=== PATIENT | female | born 1940 | race Caucasian/White ===

== ENCOUNTER 2020-03-07 07:12 | Outpatient (CLI) | payer MEDICARE, SELFPAY ==
[2020-03-07 08:52] LABS: Alanine Aminotransferase 15 U/L (4-35); Albumin Level 3.7 g/dL (3.5-5.1); Alkaline Phosphatase 91 U/L (38-126); Anion Gap 4 mmol/L (8-16); Aspartate Amino Transferase 30 U/L (14-36); Bilirubin,Total 0.5 mg/dL (0.2-1.3); Blood Urea Nitrogen 17 mg/dL (7-17); Calcium 8.9 mg/dL (8.4-10.2); Carbon Dioxide 29 mmol/L (22-30); Chloride 104 mmol/L (98-107); Cholesterol 161 mg/dL (0-200); Estimated Glomerular Filt Rate > 60; Glucose 116 mg/dL (65-105); HDL Direct 67 mg/dL; Sodium 137 mmol/L (137-145); Triglycerides 72 mg/dL (<150)
[2020-03-07 09:05] LABS: LDL Cholesterol Direct 69 mg/dL
[2020-03-07 09:18] LABS: Free T4 Free Thyroxine 1.12 ng/mL (0.78-2.19)
== END 2020-03-07 07:13 | disposition home or self-care (01) ==
PROVIDERS: Visit Provider Internal Medicine Endocrinology, Diabetes & Metabolism
DX: M81.0 Age-related osteoporosis without current pathological fracture (principal); E03.9 Hypothyroidism, unspecified
CPT/HCPCS: 36415; 80053; 80061; 84439; 84443

== ENCOUNTER 2020-04-07 08:22 | Outpatient (CLI) | payer MEDICARE, SELFPAY ==
[2020-04-07 09:42] LABS: Iron 103 ug/dL (37-170)
[2020-04-07 09:51] LABS: Percent Iron Saturation 30 % (20-50)
[2020-04-12 12:57] LABS: Testosterone Free 1.2 pg/mL (0.2-3.7); Testosterone Total 19 ng/dL (2-45)
== END 2020-04-07 08:23 | disposition home or self-care (01) ==
PROVIDERS: Visit Provider Internal Medicine Endocrinology, Diabetes & Metabolism
DX: L65.9 Nonscarring hair loss, unspecified (principal)
CPT/HCPCS: 36415; 82728; 83540; 83550; 84402; 84403

== ENCOUNTER 2020-05-23 11:58 | Outpatient (CLI) | payer MEDICARE, SELFPAY ==
[2020-05-23 12:32] LABS: Add Urine Microscopic? YES; Appearance Urine Clear (Clear); Bacteria Urine Trace /hpf; Bilirubin Urine Negative (Negative); Blood Urine Negative (Negative); Color Urine Yellow (Yellow); Glucose Urine UA Negative (Negative); Ketones Urine Negative (Negative); Leukocyte Esterase Ur 3+ LEU/UL (Negative); Mucus Urine Rare /lpf; Nitrate Urine Negative (Negative); Protein Urine Negative (Negative); Specific Grav Ur 1.014 (1.001-1.035); Squamous Epithelial Cell Urine Many /hpf (Few); Urobilinogen Urine Negative mg/dL (<2.0); WBC Urine >75 /hpf
== END 2020-05-23 11:59 | disposition home or self-care (01) ==
DX: R30.0 Dysuria (principal)
CPT/HCPCS: 81001; 87086

== ENCOUNTER 2020-10-04 07:39 | Outpatient (CLI) | payer MEDICARE, SELFPAY ==
[2020-10-04 08:15] LABS: Alanine Aminotransferase 17 U/L (4-35); Albumin Level 3.7 g/dL (3.5-5.1); Alkaline Phosphatase 77 U/L (38-126); Anion Gap 2 mmol/L (8-16); Aspartate Amino Transferase 34 U/L (14-36); Bilirubin,Total 0.4 mg/dL (0.2-1.3); Blood Urea Nitrogen 15 mg/dL (7-17); Calcium 8.2 mg/dL (8.4-10.2); Carbon Dioxide 30 mmol/L (22-30); Chloride 107 mmol/L (98-107); Estimated Glomerular Filt Rate > 60; Glucose 101 mg/dL (65-105); Potassium 3.8 mmol/L (3.4-5.0); Sodium 139 mmol/L (137-145)
[2020-10-04 09:05] LABS: Free T4 Free Thyroxine 1.15 ng/mL (0.78-2.19); Vitamin D 25 Hydroxy 51.7 ng/mL
[2020-10-09 13:55] LABS: Triiodothyronine T3 Free 2.8 pg/mL (2.3-4.2)
== END 2020-10-04 07:40 | disposition home or self-care (01) ==
PROVIDERS: PCP Pediatrics; Visit Provider Internal Medicine Endocrinology, Diabetes & Metabolism
DX: E03.9 Hypothyroidism, unspecified (principal); M81.0 Age-related osteoporosis without current pathological fracture
CPT/HCPCS: 36415; 80053; 82306; 84439; 84443; 84481

== ENCOUNTER 2020-11-17 17:03 | Outpatient (CLI) | payer MEDICARE, SELFPAY | END 2020-11-17 17:04 | disposition home or self-care (01) | LOC: ANHLAB 17:05 | PROVIDERS: PCP Pediatrics; Visit Provider Internal Medicine Gastroenterology | DX: R19.7 Diarrhea, unspecified (principal) | CPT/HCPCS: 87045; 87046; 87324; 87427 ==

== ENCOUNTER 2021-01-02 01:26 | Day surgery (SDC) | payer MEDICARE, SELFPAY ==
[2020-12-20 15:40] VITALS: BMI 24.1
[2021-01-02 07:53] VITALS: BP 123/71; PULSE 82; RESP 18; TEMP 35.6; O2SAT 98; BMI 22.9
--- NOTE | 2021-01-02 08:13 | P.PNAN_ITS ---
Anes - Initial Pre Proc Eval Procedure: Operation Date: 01/02/21 09:00 Proposed Procedures p Colonoscopy - Bob Dempsey MD Date/Time: 01/02/21 08:13 Surgeon: Bob Dempsey MD Pre Op Diagnosis: diarrhea Patient Data Age: 80 Gender: F Height: 1.55 m Weight: 55.1 kg Last Vital Signs Temp 96.1 F L 01/02/21 07:53 Pulse 82 01/02/21 07:53 Resp 18 01/02/21 07:53 BP 123/71 01/02/21 07:53 Pulse Ox 98 01/02/21 07:53 Allergies Allergy/AdvReac Type Severity Reaction Status Date / Time Sulfa (Sulfonamide Allergy Intermediate HIVES Verified 01/02/21 07:51 Antibiotics) SULFAMERAZINE (Generic Allergy Unknown HIVES Uncoded 01/02/21 07:51 Allergy) Home Medications Medication Instructions Recorded Confirmed Type acetaminophen 500 mg capsule 500 mg PO Q6H PRN 11/30/20 01/02/21 History atorvastatin 20 mg tablet 20 mg PO DAILY 11/30/20 01/02/21 History levothyroxine 50 mcg capsule 50 mcg PO DAILY 11/30/20 01/02/21 History clobetasol 0.05 % topical cream 1 applic TOPICAL 2XW 12/07/20 01/02/21 History conjugated estrogens 0.45 mg tablet 0.45 mg PO 2XW 12/07/20 01/02/21 History loperamide 2 mg capsule 2 mg PO Q6H PRN #20 cap 12/07/20 01/02/21 Rx melatonin 3 mg capsule 3 mg PO QHS 12/07/20 01/02/21 History Patient hx anesthesia problems: none Family hx anesthesia problems: none FOR[facility], [facility] Past Medical History Medical History Anxiety GERD (gastroesophageal reflux disease) Headache Family History Family History Father Malignant neoplasm of prostate Grandparent Small cell lung cancer Social History Social History Smoking status: Never smoker Alcohol intake: never Substance use: never Living arrangements: alone Additional occupation/education comments: German Gender identity (if verbalized by the patient): Female Spiritual care concerns: No Agree to blood products: Yes Anes - Eval Final PreProcedure Day of Procedure 01/02/21 08:13 Patient weight: normal Heart: regular rate and rhythm Lungs: clear to auscultation Airway: Mallampati scale class II Neurological: alert and oriented Last oral intake: >/= 8 hours ASA classification: II Emergent: no Anesthetic plan: proceed Anesthesia type and monitoring: general GIVS and standard monitoring Informed Consent: The patient's anesthetic plan and its attendant risks and benefits were discussed with the patient/family/POA. Questions were solicited and answers provided to the satisfaction of the patient/family/POA.
[2021-01-02] MEDS: LACTATED RINGERS 1,000 ML 150 ML IV CONT (08:16)
--- NOTE | 2021-01-02 08:55 | WPDGICN ---
Assessment and Plan Assessment and plan (1) Diarrhea: Code(s): R19.7 - Diarrhea, unspecified Status: Acute Assessment and Plan: Patient complains of ongoing diarrhea. This is a change in her normal bowel habits. Suspect she may have had an infection and post infectious irritable bowel syndrome. Organic disease cannot be excluded. A colonoscopy is been requested will be performed because of ongoing diarrhea. Imodium dose is suggested to be intermittent. Fiber supplementation is encouraged on a daily basis. Further recommendations will be given after endoscopy. GI Consult Note Consult date/time: 01/02/21 08:55 HPI: Edwige Whiting is a 80 year old female Presents for colonoscopy. Patient has had diarrhea for the last 2 months. Diarrhea now occurs intermittently. Her stools remain soft. She initially was given a trial of antibiotics. Stool cultures were performed found to be unremarkable. Recently has tried Imodium intermittently for control of diarrhea but only occasionally. She states diarrhea is much less frequent into the less severe did agree. Patient denies any bleeding or weight loss. Family history is noncontributory. Review of Systems Review of Systems: All systems reviewed & are unremarkable except as noted in HPI and below PMFSH Past Medical History Medical History Anxiety GERD (gastroesophageal reflux disease) Headache Family History Family History Father Malignant neoplasm of prostate Grandparent Small cell lung cancer Social History Social History Smoking status: Never smoker Alcohol intake: never Substance use: never Living arrangements: alone Additional occupation/education comments: German Gender identity (if verbalized by the patient): Female Spiritual care concerns: No Agree to blood products: Yes Meds Home Medications and Allergies Home Medications Medication Instructions Recorded Confirmed Type acetaminophen 500 mg capsule 500 mg PO Q6H PRN 11/30/20 01/02/21 History atorvastatin 20 mg tablet 20 mg PO DAILY 11/30/20 01/02/21 History levothyroxine 50 mcg capsule 50 mcg PO DAILY 11/30/20 01/02/21 History clobetasol 0.05 % topical cream 1 applic TOPICAL 2XW 12/07/20 01/02/21 History conjugated estrogens 0.45 mg tablet 0.45 mg PO 2XW 12/07/20 01/02/21 History loperamide 2 mg capsule 2 mg PO Q6H PRN #20 cap 12/07/20 01/02/21 Rx melatonin 3 mg capsule 3 mg PO QHS 12/07/20 01/02/21 History Allergies Allergy/AdvReac Type Severity Reaction Status Date / Time Sulfa (Sulfonamide Allergy Intermediate HIVES Verified 01/02/21 07:51 Antibiotics) SULFAMERAZINE (Generic Allergy Unknown HIVES Uncoded 01/02/21 07:51 Allergy) Vital Signs Vital Signs - 24 hr 01/02/21 07:53 Temperature 96.1 F L Pulse Rate 82 Respiratory Rate 18 Blood Pressure 123/71 Pulse Oximetry 98 Exam Narrative: Exam Narrative: Physical exam reveals patient be alert. Vital signs stable. HEENT exam is unremarkable. Patient is anicteric. Lungs are clear to auscultation and percussion. Heart is without murmur or extra sounds. Abdominal exam bowel sounds present soft nontender with no organomegaly. Digital external rectal exam normal.
[2021-01-02 09:33] VITALS: BP 106/55; PULSE 66; RESP 13; O2SAT 98
[2021-01-02 09:44] VITALS: BP 108/57; PULSE 68; RESP 14; O2SAT 99
[2021-01-02 09:54] VITALS: BP 117/60; PULSE 67; RESP 13; O2SAT 99
== END 2021-01-02 10:10 | disposition home or self-care (01) ==
PROVIDERS: PCP Pediatrics; Visit Provider Internal Medicine Gastroenterology
PROC: 0DJD8ZZ Inspection of Lower Intestinal Tract, Via Natural or Artificial Opening Endoscopic (ICD-10-PCS; CPT 45378; principal; 2021-01-02 09:00)
DX: R19.7 Diarrhea, unspecified (principal); K63.5 Polyp of colon; K64.8 Other hemorrhoids; F41.9 Anxiety disorder, unspecified; K21.9 Gastro-esophageal reflux disease without esophagitis; E03.9 Hypothyroidism, unspecified
CPT/HCPCS: 45385; 45380; 88305; J2704; J7120

== ENCOUNTER 2021-03-30 08:38 | Outpatient (CLI) | payer MEDICARE, SELFPAY ==
--- NOTE | ~2021-03-30 | DEXA_ITS ---
Bone Density Report Name: Edwige Whiting Age: 80 Sex: Female Ethnicity: White Date of : 1940 Indication: postmenopausal; height loss; hysterectomy; Referring Provider: Sylvain, Charlotte Velez Study: Bone densitometry was performed. Exam Date: March 30, 2021 Accession number: [id number] Bone Density: Region BMD T-score Z-score Classification AP Spine (L1-L4) 0.798 -2.3 0.3 Osteopenia Femoral Neck (Left) 0.576 -2.5 -0.2 Osteoporosis Total Hip (Left) 0.732 -1.7 0.3 Osteopenia Total Hip Bilateral Avg 0.701 -2.0 0.0 Osteopenia Femoral Neck (Right) 0.587 -2.4 -0.1 Osteopenia Total Hip (Right) 0.669 -2.2 -0.3 Osteopenia World Health Organization criteria for BMD impression classify patients as: Normal (T-score at or above -1.0), Osteopenia (T-score between -1.0 and -2.5), or Osteoporosis (T-score at or below -2.5). 10-year Fracture Risk: FRAX not reported because: Some T-score for Spine Total or Hip Total or Femoral Neck at or below -2.5 Clinical Information Provided by Patient: Has used the following medications: Vitamin D, Calcium Has the following medical conditions: Hysterectomy Patient maximum height was 64 Menopause Age: 55 Does not regularly consume dairy products Drinks caffeinated beverages Onset of menses at age 12 Number of children 3 Impression: The patient has osteoporosis, based on the Left Femoral Neck T-score. Discussion: INCREASED RISK OF FRACTURE. BONE DENSITY IS UNDESIRABLY LOW AT ONE OR MORE SKELETAL SITES, CONSISTENT WITH POSTMENOPAUSAL OSTEOPOROSIS. This patient's lowest T-score meets the World Health Organization's (WHO) criteria for osteoporosis at one or more sites (T-score -2.5 or below). In untreated patients, the risk of osteoporotic fracture increases approximately two-fold for each 1.0 SD decrease in T-score. Low bone density is not the only risk factor for fracture; also consider factors such as patient's age, frailty or poor health, risk of falling, risk of injury, previous osteoporotic fracture, family history of osteoporosis, cigarette smoking, low body weight, etc. Not everyone with low bone mineral density has osteoporosis; osteomalacia and other metabolic bone disorders should also be considered. Patients who have osteoporosis should be evaluated for specific diseases and conditions (secondary causes) that may cause or contribute to bone loss. The [place] Association of Clinical Endocrinologists (AACE) and National Osteoporosis Foundation (NOF) recommend pharmacologic intervention for all postmenopausal women whose T-score is in this range. The patient should follow a healthful lifestyle (good nutrition with adequate calcium and vitamin D, and appropriate weight-bearing exercise). Follow-Up: Consider a repeat BMD and Vertebral Fracture Assessment (VFA) exam in 2 years or sooner if med
[2021-03-30 10:19] LABS: Alanine Aminotransferase 21 U/L (4-35); Albumin Level 4.2 g/dL (3.5-5.1); Alkaline Phosphatase 82 U/L (38-126); Anion Gap 6 mmol/L (8-16); Aspartate Amino Transferase 34 U/L (14-36); Bilirubin,Total 0.5 mg/dL (0.2-1.3); Blood Urea Nitrogen 19 mg/dL (7-17); Calcium 9.2 mg/dL (8.4-10.2); Carbon Dioxide 31 mmol/L (22-30); Chloride 102 mmol/L (98-107); Estimated Glomerular Filt Rate > 60; Glucose 105 mg/dL (65-110); Potassium 4.1 mmol/L (3.4-5.0); Sodium 139 mmol/L (137-145)
[2021-03-30 11:07] LABS: Free T4 Free Thyroxine 1.17 ng/mL (0.78-2.19); Vitamin D 25 Hydroxy 42.4 ng/mL
[2021-03-30 11:11] LABS: Parathyroid Intact 45.9 pg/mL (7.5-53.5)
[2021-03-30 11:31] LABS: Folic Acid > 20.0 ng/mL (2.76->20)
[2021-04-04 07:16] LABS: Triiodothyronine T3 Free 2.5 pg/mL (2.3-4.2)
== END 2021-03-30 08:39 | disposition home or self-care (01) ==
PROVIDERS: PCP Pediatrics; Visit Provider Internal Medicine Endocrinology, Diabetes & Metabolism
DX: M81.0 Age-related osteoporosis without current pathological fracture (principal); E03.9 Hypothyroidism, unspecified; E55.9 Vitamin D deficiency, unspecified; M85.89 Other specified disorders of bone density and structure, multiple sites
CPT/HCPCS: 36415; 77080; 80053; 82306; 82607; 82746; 83970; 84439; 84443; 84481

== ENCOUNTER 2021-04-09 08:47 | Outpatient (CLI) | payer MEDICARE, SELFPAY ==
[2021-04-09 09:38] LABS: Alanine Aminotransferase 20 U/L (4-35); Alkaline Phosphatase 74 U/L (38-126); Anion Gap 4 mmol/L (8-16); Aspartate Amino Transferase 32 U/L (14-36); Bilirubin,Total 0.9 mg/dL (0.2-1.3); Blood Urea Nitrogen 16 mg/dL (7-17); Carbon Dioxide 29 mmol/L (22-30); Chloride 102 mmol/L (98-107); Cholesterol 151 mg/dL (0-200); Estimated Glomerular Filt Rate > 60; Glucose 99 mg/dL (65-110); HDL Direct 78 mg/dL; Potassium 3.8 mmol/L (3.4-5.0); Sodium 135 mmol/L (137-145); Triglycerides 93 mg/dL (<150); Uric Acid 3.5 mg/dL (2.5-7.5)
[2021-04-09 10:59] LABS: LDL Cholesterol Direct 58 mg/dL
== END 2021-04-09 08:48 | disposition home or self-care (01) ==
PROVIDERS: PCP Pediatrics; Visit Provider Internal Medicine Endocrinology, Diabetes & Metabolism
DX: E78.5 Hyperlipidemia, unspecified (principal)
CPT/HCPCS: 36415; 80053; 80061; 84550

== ENCOUNTER 2021-04-19 07:10 | Outpatient (CLI) | payer MEDICARE, SELFPAY ==
[2021-04-22 20:24] LABS: Fecal Fat, Ql Normal (Normal)
[2021-04-25 21:02] LABS: Pancreatic Elastase, Stool >500 mcg/g
[2021-04-26 19:47] LABS: Gliadin AB, IgG <1.0 U/mL (<15.0); Reticulin IgA Negative (Negative); TTG IGA AB <1.0 U/mL (<15.0)
== END 2021-04-19 07:11 | disposition home or self-care (01) ==
LOC: ANHLAB 07:14
PROVIDERS: PCP Pediatrics; Visit Provider Internal Medicine Endocrinology, Diabetes & Metabolism
DX: R19.5 Other fecal abnormalities (principal)
CPT/HCPCS: 36415; 82656; 82705; 83516; 86255; 87177; 87209

== ENCOUNTER 2021-08-15 07:41 | Outpatient (CLI) | payer MEDICARE, SELFPAY ==
[2021-08-15 08:48] LABS: Alanine Aminotransferase 22 U/L (4-35); Albumin Level 3.9 g/dL (3.5-5.1); Alkaline Phosphatase 75 U/L (38-126); Anion Gap 3 mmol/L (8-16); Aspartate Amino Transferase 35 U/L (14-36); Bilirubin,Total 0.7 mg/dL (0.2-1.3); Blood Urea Nitrogen 14 mg/dL (7-17); Calcium 9.5 mg/dL (8.4-10.2); Carbon Dioxide 32 mmol/L (22-30); Chloride 101 mmol/L (98-107); Cholesterol 170 mg/dL (0-200); Estimated Glomerular Filt Rate > 60; Glucose 111 mg/dL (65-110); HDL Direct 76 mg/dL; Potassium 3.9 mmol/L (3.4-5.0); Sodium 136 mmol/L (137-145); Triglycerides 69 mg/dL (<150)
[2021-08-15 08:58] LABS: Hemoglobin A1C 5.7 % (<5.7)
[2021-08-15 08:59] LABS: LDL Cholesterol Direct 64 mg/dL; Parathyroid Intact 42.4 pg/mL (7.5-53.5)
[2021-08-15 09:25] LABS: Free T4 Free Thyroxine 1.06 ng/mL (0.78-2.19); Vitamin D 25 Hydroxy 54.6 ng/mL
[2021-08-18 07:38] LABS: Triiodothyronine T3 Free 2.8 pg/mL (2.3-4.2)
== END 2021-08-15 07:42 | disposition home or self-care (01) ==
PROVIDERS: PCP Pediatrics; Visit Provider Internal Medicine Endocrinology, Diabetes & Metabolism
DX: M81.0 Age-related osteoporosis without current pathological fracture (principal); E03.9 Hypothyroidism, unspecified; R73.01 Impaired fasting glucose
CPT/HCPCS: 36415; 80053; 80061; 82306; 83036; 83970; 84439; 84443; 84481

== ENCOUNTER 2022-04-02 08:47 | Outpatient (CLI) | payer MEDICARE, SELFPAY ==
[2022-04-02 09:53] LABS: Alanine Aminotransferase 28 U/L (6-35); Albumin Level 4.1 g/dL (3.5-5.1); Alkaline Phosphatase 83 U/L (38-126); Anion Gap 6 mmol/L (8-16); Aspartate Amino Transferase 43 U/L (14-36); Bilirubin,Total 0.5 mg/dL (0.2-1.3); Blood Urea Nitrogen 19 mg/dL (7-17); Calcium 9.3 mg/dL (8.4-10.2); Carbon Dioxide 30 mmol/L (22-30); Chloride 101 mmol/L (98-107); Estimated Glomerular Filt Rate > 60; Glucose 109 mg/dL (65-110); Potassium 3.9 mmol/L (3.4-5.0); Sodium 137 mmol/L (137-145)
[2022-04-02 10:05] LABS: Parathyroid Intact 46.8 pg/mL (7.5-53.5)
[2022-04-02 10:21] LABS: Free T4 Free Thyroxine 1.52 ng/mL (0.78-2.19); Vitamin D 25 Hydroxy 57.3 ng/mL
[2022-04-02 10:24] LABS: Thyroid Stimulating Hormone 0.448 uIU/mL (0.465-4.680)
[2022-04-02 13:05] LABS: Hemoglobin A1C 5.5 % (<5.7)
== END 2022-04-02 08:48 | disposition home or self-care (01) ==
LOC: ANHLAB 08:52
PROVIDERS: PCP Pediatrics; Visit Provider Internal Medicine Endocrinology, Diabetes & Metabolism
DX: M81.0 Age-related osteoporosis without current pathological fracture (principal); R73.03 Prediabetes; E03.9 Hypothyroidism, unspecified
CPT/HCPCS: 36415; 80053; 82306; 82330; 83036; 83970; 84439; 84443; 84481

== ENCOUNTER 2022-05-13 08:31 | Outpatient (CLI) | payer MEDICARE, SELFPAY ==
[2022-05-13 09:17] LABS: Alanine Aminotransferase 29 U/L (6-35); Albumin Level 4.2 g/dL (3.5-5.1); Alkaline Phosphatase 92 U/L (38-126); Anion Gap 7 mmol/L (8-16); Aspartate Amino Transferase 41 U/L (14-36); Bilirubin,Total 0.6 mg/dL (0.2-1.3); Blood Urea Nitrogen 16 mg/dL (7-17); Calcium 8.9 mg/dL (8.4-10.2); Carbon Dioxide 28 mmol/L (22-30); Chloride 98 mmol/L (98-107); Cholesterol 171 mg/dL (0-200); Estimated Glomerular Filt Rate > 60; Glucose 102 mg/dL (65-110); HDL Direct 75 mg/dL; Phosphorus 3.3 mg/dL (2.5-4.5); Potassium 3.6 mmol/L (3.4-5.0); Sodium 133 mmol/L (137-145); Triglycerides 96 mg/dL (<150)
[2022-05-13 09:28] LABS: Parathyroid Intact 52.6 pg/mL (7.5-53.5)
[2022-05-13 09:39] LABS: LDL Cholesterol Direct 66 mg/dL
[2022-05-13 09:47] LABS: Free T4 Free Thyroxine 1.13 ng/mL (0.78-2.19)
[2022-05-13 10:34] LABS: Hemoglobin A1C 5.6 % (<5.7)
[2022-05-16 11:23] LABS: Insulin Level Total 4.5 uIU/mL (<=19.6)
[2022-05-19 18:11] LABS: Triiodothyronine T3 Free 2.6 pg/mL (2.3-4.2)
== END 2022-05-13 08:32 | disposition home or self-care (01) ==
PROVIDERS: PCP Pediatrics; Visit Provider Internal Medicine Endocrinology, Diabetes & Metabolism
DX: E03.9 Hypothyroidism, unspecified (principal); M81.0 Age-related osteoporosis without current pathological fracture; R73.01 Impaired fasting glucose
CPT/HCPCS: 36415; 80053; 80061; 82306; 83036; 83525; 83970; 84100; 84439; 84443; 84481

== ENCOUNTER 2022-12-09 07:13 | Outpatient (CLI) | payer MEDICARE, SELFPAY ==
[2022-12-09 08:19] LABS: Alanine Aminotransferase 25 U/L (6-35); Albumin Level 3.9 g/dL (3.5-5.1); Alkaline Phosphatase 83 U/L (38-126); Anion Gap 0 mmol/L (8-16); Aspartate Amino Transferase 36 U/L (14-36); Bilirubin,Total 0.7 mg/dL (0.2-1.3); Blood Urea Nitrogen 15 mg/dL (7-17); Calcium 8.7 mg/dL (8.4-10.2); Carbon Dioxide 32 mmol/L (22-30); Chloride 105 mmol/L (98-107); Estimated Glomerular Filt Rate > 60; Glucose 96 mg/dL (65-110); Phosphorus 2.9 mg/dL (2.5-4.5); Potassium 3.7 mmol/L (3.4-5.0); Sodium 137 mmol/L (137-145)
[2022-12-09 08:33] LABS: Hemoglobin A1C 5.3 % (<5.7)
[2022-12-09 08:49] LABS: Thyroid Stimulating Hormone 0.623 uIU/mL (0.465-4.680)
[2022-12-09 09:12] LABS: Parathyroid Intact 60.3 pg/mL (7.5-53.5)
[2022-12-09 09:23] LABS: Free T4 Free Thyroxine 1.49 ng/mL (0.78-2.19); Vitamin D 25 Hydroxy 48.7 ng/mL
[2022-12-12 13:29] LABS: Insulin Level Total 2.9 uIU/mL (<=19.6)
[2022-12-12 14:46] LABS: Triiodothyronine T3 Free 2.8 pg/mL (2.3-4.2)
== END 2022-12-09 07:14 | disposition home or self-care (01) ==
PROVIDERS: PCP Pediatrics; Visit Provider Internal Medicine Endocrinology, Diabetes & Metabolism
DX: E03.9 Hypothyroidism, unspecified (principal); R73.01 Impaired fasting glucose; M81.0 Age-related osteoporosis without current pathological fracture
CPT/HCPCS: 36415; 80053; 82306; 83036; 83525; 83970; 84100; 84439; 84443; 84481

== ENCOUNTER 2023-06-24 08:31 | Outpatient (CLI) | payer MEDICARE, SELFPAY ==
[2023-06-24 09:23] LABS: Alanine Aminotransferase 28 U/L (6-35); Albumin Level 3.8 g/dL (3.5-5.1); Alkaline Phosphatase 98 U/L (38-126); Anion Gap 8 mmol/L (8-16); Aspartate Amino Transferase 41 U/L (14-36); Bilirubin,Total 0.7 mg/dL (0.2-1.3); Blood Urea Nitrogen 20 mg/dL (7-17); Calcium 9.8 mg/dL (8.4-10.2); Carbon Dioxide 25 mmol/L (22-30); Chloride 102 mmol/L (98-107); Estimated Glomerular Filt Rate > 60; Glucose 108 mg/dL (65-110); Potassium 4.1 mmol/L (3.4-5.0); Sodium 135 mmol/L (137-145)
[2023-06-24 09:48] LABS: Thyroid Stimulating Hormone 0.568 uIU/mL (0.465-4.680)
[2023-06-24 10:22] LABS: Free T4 Free Thyroxine 1.77 ng/mL (0.78-2.19)
[2023-06-27 04:53] LABS: Triiodothyronine T3 Free 2.6 pg/mL (2.3-4.2)
== END 2023-06-24 08:32 | disposition home or self-care (01) ==
PROVIDERS: PCP Pediatrics; Visit Provider Pediatrics
DX: E03.9 Hypothyroidism, unspecified (principal)
CPT/HCPCS: 36415; 80053; 84439; 84443; 84481

== ENCOUNTER 2024-01-23 07:46 | Outpatient (CLI) | payer MEDICARE, SELFPAY ==
[2024-01-23 08:24] LABS: Basophils Percent Auto 0.7 % (0.2-1.2); Eosinophils Absolute Auto 0.1 K/mm3 (0-0.3); Eosinophils Percent Auto 2.9 % (0-4.4); Hematocrit 40.3 % (37.0-47.0); Hemoglobin 13.7 g/dL (12.0-15.0); Immature Granulocyte Absolute 0.01 K/mm3 (0.00-0.031); Immature Granulocyte Percent A 0.2 % (0-0.5); Lymphocytes Absolute Auto 1.47 K/mm3 (0.9-3.2); Lymphocytes Percent Auto 35.6 % (18.3-44.2); Mean Corpuscular Hemoglobin 33.7 pg (26-34); Mean Platelet Volume 11.3 fl (7.4-10.4); Monocytes Absolute Auto 0.5 K/mm3 (0.1-0.6); Monocytes Percent Auto 11.4 % (2.6-8.5); Neutrophils Percent Auto 49.2 % (45.5-73.1); Platelet Count Result 152 k/mm3 (150-375); Red Blood Count 4.07 M/mm3 (4.2-5.4); Red Cell Distribution Width 11.9 % (11.5-14.5); White Blood Count 4.1 K/mm3 (4.5-10.0)
[2024-01-23 08:43] LABS: Alanine Aminotransferase 24 U/L (6-35); Alkaline Phosphatase 96 U/L (38-126); Anion Gap 7 mmol/L (4-12); Aspartate Amino Transferase 33 U/L (14-36); Bilirubin,Total 0.7 mg/dL (0.2-1.3); Blood Urea Nitrogen 18 mg/dL (7-17); Calcium 9.7 mg/dL (8.4-10.2); Carbon Dioxide 29 mmol/L (22-30); Chloride 102 mmol/L (98-107); Cholesterol 159 mg/dL (0-200); Estimated Glomerular Filt Rate > 60; Glucose 105 mg/dL (65-110); HDL Direct 75 mg/dL; Sodium 138 mmol/L (137-145); Triglycerides 87 mg/dL (<150)
[2024-01-23 08:54] LABS: LDL Cholesterol Direct 62 mg/dL
[2024-01-23 09:21] LABS: Free T4 Free Thyroxine 1.63 ng/mL (0.78-2.19); Vitamin D 25 Hydroxy 53.1 ng/mL
== END 2024-01-23 07:47 | disposition home or self-care (01) ==
LOC: ANHLAB 07:51
PROVIDERS: PCP Pediatrics; Visit Provider Pediatrics
DX: E03.9 Hypothyroidism, unspecified (principal); E78.2 Mixed hyperlipidemia; M81.0 Age-related osteoporosis without current pathological fracture
CPT/HCPCS: 36415; 80053; 80061; 82306; 84439; 84443; 85025

== ENCOUNTER 2024-07-10 17:00 | Emergency (ER) | payer MEDICARE, SELFPAY ==
--- NOTE | ~2024-07-10 | XR_ITS ---
XR elbow LT 2V Ordering provider: Rodolfo Garcia MD History: . fall, BEST OBTAINABLE IMAGES DUE TO LT WRIST CONDITION . Comparison: None. FINDINGS: BONES: Sclerotic area in the radial head. Possibility of fracture cannot be excluded. JOINT SPACES: Normal. SOFT TISSUES: Normal. No definite joint effusion. IMPRESSION: Possibility of fracture in the radial head cannot be excluded. Follow-up advised. Reviewed, dictated and finalized at location A. VERY ARCHITECT IMPRESSION: Possibility of fracture in the radial head cannot be excluded. Follow-up advise braydon
--- NOTE | ~2024-07-10 | XR_ITS ---
XR wrist LT 2V Ordering provider: Rodolfo Garcia MD History: . fall . Comparison: None. FINDINGS: BONES: Fracture of the distal metaphysis of the left radius with no significant displacement. Highly suggestive fracture of the scaphoid bone. Follow-up advised. Possible fracture in the distal metaphys is of the second metacarpal bone. JOINT SPACES: Narrowing of the radiocarpal joint with chondrocalcinosis. SOFT TISSUES: Normal. IMPRESSION: Fracture of the distal metaphysis of the left radius. Possible fracture of the scaphoid bone. Follow-up advised. Possible fracture of the distal metaphysis of the second metacarpal bone. Chondrocalcinosis in the TFC. Reviewed, dictated and finalized at location A. BED TRUCK DRIVER
--- NOTE | ~2024-07-10 | CT_ITS ---
CT brain wo con Ordering provider: Rodolfo Garcia MD History: 83 years Female with . fall . Comparison: None. Technique: CT of the head without contrast. Radiation reduction technique utilized. The dose-length product was 681 mGy-cm. FINDINGS: BRAIN PARENCHYMA AND CSF SPACES: Mild leukoaraiosis and diffuse cortical atrophy. Mild atheromatous d isease. The No midline shift, mass effect or hemorrhage. The brain parenchyma and CSF spaces are oth erwise normal. VISUALIZED PARANASAL SINUSES: Bilateral ethmoid sinus disease. MASTOIDS: Right mastoid air cells effusion. BONES: The bones appear intact. SOFT TISSUES: Visualized nasopharynx is normal. Superficial soft tissues are normal. IMPRESSION: No acute intracranial findings. Reviewed, dictated and finalized at location A. LITY ENVIRONMENTAL TECHNICIAN
[2024-07-10 17:04] VITALS: BP 160/83; PULSE 78; RESP 16; TEMP 36.7; O2SAT 100
--- NOTE | 2024-07-10 17:30 | ED_ITS ---
HPI - Extremity Injury (Upper) General Chief Complaint: Extremity Injury, Upper Stated Complaint: FALL, WRIST DEFORMITY Time Seen by Provider: 07/10/24 17:13 History of Present Illness HPI narrative: 83-year-old female presenting to the emergency department for a fall on ice about 1 hour prior to arrival. She landed on her left outstretched hand and has an obvious deformity to her left wrist. She states she has not hit her head or lose consciousness. Was mechanical nature fall on ice. Was otherwise in her normal state of health. EMS was called to scene and splinted the patient and provided morphine for analgesia. She denies any fever chills, headache, nausea, vomiting, paresthesias or weakness in the hand. She has significant pain over the dorsum of the left hand and left elbow. No back pain or shoulder pain. Related Data Home Medications ?Medication ?Instructions ?Recorded ?Confirmed ?Last Taken ?Type atorvastatin 20 mg tablet 20 mg PO DAILY 11/30/20 09/14/21 01/01/21 History 20 mg levothyroxine 50 mcg capsule 50 mcg PO DAILY 11/30/20 09/14/21 01/01/21 History 50 mcg clobetasol 0.05 % topical cream 1 applic topical 2XW 12/07/20 09/14/21 01/01/21 History 1 applic cranberry extract-vitamin C [Azo PO DAILY 09/14/21 Unknown History Cranberry Plus Vit C] denosumab 60 mg/mL subcutaneous 60 mg subcut [id number] 09/14/21 Unknown History syringe (Prolia) multivit, calcium and 1 tablet PO DAILY 09/14/21 Unknown History minerals-vitamin D3-herbal#181 1,000 unit tablet multivitamin 1 tablet PO DAILY 09/14/21 Unknown History Allergies Allergy/AdvReac Type Severity Reaction Status Date / Time Sulfa (Sulfonamide Allergy Intermediate HIVES Verified 09/14/21 15:02 Antibiotics) SULFAMERAZINE (Generic Allergy Unknown HIVES Uncoded 09/14/21 15:02 Allergy) Review of Systems 2 Review of Systems: As reviewed [facility] Past Medical History Medical History Osteopenia Urinary frequency Wears glasses Castano cyst Chondrocalcinosis Degenerative joint disease of knee Headache GERD (gastroesophageal reflux disease) Anxiety Surgical History Surgical History H/O Spinal surgery disc approx 1989 per patient questionnaire History of hysterectomy 1999 per patient questionnaire History of tonsillectomy 1947 per patient questionnaire Family History Family History Father Malignant neoplasm of prostate Grandparent Small cell lung cancer Other Cerebrovascular accident Rheumatoid arthritis Social History Social History Smoking status: Never smoker Alcohol intake: never Substance use: never Substance use type: does not use Living arrangements: alone Occupation/Education: retired Additional occupation/education comments: German Gender identity (if verbalized by the patient): Female Sexual Orientation (if Verbalized by the Patient): Straight or Heterosexual Spiritual care concerns: No Agree to blood products: Yes Exam 2 Narrative: GENERAL: [Well-appearing, well-nourished, and in no acute distress.] HEAD: [Normocephalic, atraumatic.] EYES: [PERRLA and EOMI.] ENT: Nares clear, no rhinorrhea or epistaxis. Mucous membranes moist. NECK: Supple. CHEST: [Clear to auscultation. No respiratory distress.] HEART: [Regular rate and rhythm]. No murmur heard. [Normal peripheral pulses.] ABDOMEN: [Soft, nondistended], [nontender], [No rigidity or guarding] EXTREMITIES: Dinner fork deformity to the left wrist with some dorsal angulation concerning for a Colles fracture, overlying skin is thin but no significant bruising. Tenderness to palpation, some minor tenderness to palpation over the left elbow but no step-offs deformities. No tenderness over the shoulder with full range of motion. Receiving Lead strength full 5/5, able to oppose each digit, able to make a thumbs-up sign and okay sign. SKIN: Warm, dry, no rash. NEURO: [No focal deficits]. Alert and oriented [x3.] PSYCH: [Normal mood and affect.] Course Vital Signs Vital signs: Vital Signs Temperature 36.7 C 07/10/24 17:04 Pulse Rate 78 07/10/24 17:04 Respiratory Rate 16 07/10/24 17:04 Blood Pressure 160/83 H 07/10/24 17:04 Pulse Oximetry 100 07/10/24 17:04 Oxygen Delivery Room Air 07/10/24 17:04 Temperature 36.7 C 07/10/24 17:04 Pulse Rate 74 07/10/24 21:11 Respiratory Rate 16 07/10/24 21:11 Blood Pressure 137/59 L 07/10/24 21:11 Pulse Oximetry 97 07/10/24 21:11 Oxygen Delivery Room Air 07/10/24 17:04 Procedures Orthopedic Splinting/Casting Injury #1: Splinting/Casting Date: 07/10/24 Splinting/Casting Time: 19:22 Side: left Upper Extremity Injury Location: upper arm Upper Extremity Immobilizer: sugar tong splint Splint: customized in ED Pre-Procedure Neuro Vascular Exam: normal Post-Procedure Neuro Vascular Exam: normal Other Orthopedic Equipment: other (Sling) MDM - Extremity Injury (Upper) MDM Narrative Medical decision making narrative: 83-year-old female presenting for mechanical fall on ice with left hand injury. She fell onto her left outstretched hand and has an obvious deformity concerning for a Colles fracture. She states she did not strike her head but landed onto her left side. She is not any kind of blood thinners but given her age and risk factors a CT head was also added on to her x-rays of her left wrist and elbow. She was provided morphine EN route with some improvement and provide 1 mg of IV Dilaudid here for analgesia while we obtain films. Basic laboratory studies and coagulation studies obtained in the event that she requires operative repair. Workup shows no leukocytosis or anemia. Normal platelets. Normal coagulation studies. Electrolytes within normal limits, normal renal function panel. Wrist x-ray shows a fracture of the left distal radius but no displacement. Possible fracture of the scaphoid and distal metaphysis of the 2nd metacarpal although not definitive. No displacement of the bony fragments. Elbow x-ray per my interpretation has no acute abnormality but radiology comments on a potentially fracture radial head although not definitive. CT of the head shows no acute intracranial pathology. I discussed the case with the on-call orthopedic surgeon Dr. Ronen gruber. We went over patient's imaging studies and believes patient could be safely discharged with outpatient follow-up. Clinic instructions were given to the patient as well as pain controlling medications sent to her pharmacy. She was placed into a sugar-tong splint covering the metacarpals and a sling for support. Sling application without any complication, described above. Patient stable and safe for discharge at this time. Medical Records Attestation: I reviewed the patient's medical records. Lab Data Attestation: I reviewed the patient's lab results. 07/10/24 17:37 07/10/24 17:37 Labs: Lab Results 07/10/24 Range/Units 17:37 WBC 5.3 (4.5-10.0) K/mm3 RBC 3.88 L (4.2-5.4) M/mm3 Hgb 12.6 (12.0-15.0) g/dL Hct 37.8 (37.0-47.0) % MCV 97.4 (80-100) fl MCH 32.5 (26-34) pg MCHC 33.3 (32-36) g/dl RDW 12.3 (11.5-14.5) % Plt Count 165 (150-375) k/mm3 MPV 11.2 H (7.4-10.4) fl Immature Gran % (Auto) 0.2 (0-0.5) % Neut % (Auto) 60.2 (45.5-73.1) % Lymph % (Auto) 28.4 (18.3-44.2) % [place] % (Auto) 9.5 H (2.6-8.5) % Eos % (Auto) 0.9 (0-4.4) % Baso % (Auto) 0.8 (0.2-1.2) % Lymph # (Auto) 1.50 (0.9-3.2) K/mm3 [place] # (Auto) 0.5 (0.1-0.6) K/mm3 Eos # (Auto) 0.1 (0-0.3) K/mm3 Baso # (Auto) 0.0 (0.0-0.1) K/mm3 Abs Immat Gran (auto) 0.01 (0.00-0.031) K/mm3 Absolute Neuts (auto) 3.2 (1.3-6.7) K/mm3 Absolute Nucleated RBC 0.000 (0.0-0.012) K/mm3 Nucleated RBC % 0.0 (0.0-0.2) % PT 13.1 (11.1-14.7) Seconds INR 1.0 APTT 26.3 (22.3-36.8) Seconds Sodium 135 L (137-145) mmol/L Potassium 3.9 (3.4-5.0) mmol/L Chloride 101 (98-107) mmol/L Carbon Dioxide 30 (22-30) mmol/L Anion Gap 4 (4-12) mmol/L BUN 20 H (7-17) mg/dL Creatinine 0.66 L (0.7-1.0) mg/dL Estim Creat Clear Calc 41 ml/min Estimated GFR > 60 (59 - ) Glucose 110 (65-110) mg/dL Calcium 9.7 (8.4-10.2) mg/dL Imaging Data Attestation: I personally reviewed and interpreted this imaging study as follows: My impression: Impressions Wrist X-Ray 07/10/24 18:00 IMPRESSION: Fracture of the distal metaphysis of the left radius. Possible fracture of the scaphoid bone. Follow-up advised. Possible fracture of the distal metaphysis of the second metacarpal bone. Chondrocalcinosis in the TFC. Elbow X-Ray 07/10/24 18:13 IMPRESSION: Possibility of fracture in the radial head cannot be excluded. Follow-up advised. Head CT 07/10/24 18:58 IMPRESSION: No acute intracranial findings. Discharge Plan Discharge Clinical Impression: Distal radius fracture, left, Elbow pain, left, Scaphoid fracture, Metacarpal bone fracture Patient Disposition: Home, Self-Care Condition: Stable Instructions: Antibiotic Form, Arm Fracture in Adults (ED), Elbow Fracture (DC), Wrist Fracture in Adults (ED), How to Use a Sling (ED), Splint Care (ED), Scaphoid Fracture (ED) Additional Instructions: Your x-ray shows a distal radius fracture in the left arm as well as some possible small fractures in the wrist bones. There is also a questionable elbow fracture although very unlikely based on the picture. We have referred you to an orthopedic surgeon for evaluation and placed 2 and a sling. We will send you home with pain control medications. Return with any new or worsening concerns at any time. Patient Language: Belarusian Prescriptions: New oxycodone 5 mg tablet 5 mg PO Q8H PRN (Reason: pain) Qty: 10 0RF acetaminophen [Tylenol Extra Strength] 500 mg tablet 1,000 mg PO TID PRN (Reason: pain) Qty: 30 0RF ibuprofen 600 mg tablet 600 mg PO TID PRN (Reason: pain) Qty: 20 0RF No Action levothyroxine 50 mcg capsule 50 mcg PO DAILY atorvastatin 20 mg tablet 20 mg PO DAILY clobetasol 0.05 % cream 1 applic topical 2XW multivit,Ca,[id number] #181 1,000 unit tablet 1 tablet PO DAILY Patient Comments: on provided med list multivitamin Tablet 1 tablet PO DAILY cranberry extract-vitamin C [Azo Cranberry Plus Vit C] PO DAILY Patient Comments: on provided med list Prolia 60 mg/mL syringe 60 mg subcut [id number] Follow-up/Referrals: Jeffrey,Joshua Jack MD [Primary Care Provider] - To Rossi MD [Physician] - 1 Week (Left distal radius, scaphoid, metacarpal fracture) Time of Disposition: 20:42
[2024-07-10] MEDS: HYDROmorphone HCL INJ (*CRX) 1 MG/ML SYR IV PUSH (17:38)
[2024-07-10 17:45] VITALS: BP 131/68; PULSE 69; RESP 16; O2SAT 100
[2024-07-10 17:47] VITALS: BP 131/68; PULSE 88; RESP 14; O2SAT 100
[2024-07-10 17:49] LABS: Basophils Percent Auto 0.8 % (0.2-1.2); Eosinophils Absolute Auto 0.1 K/mm3 (0-0.3); Eosinophils Percent Auto 0.9 % (0-4.4); Hematocrit 37.8 % (37.0-47.0); Hemoglobin 12.6 g/dL (12.0-15.0); Immature Granulocyte Absolute 0.01 K/mm3 (0.00-0.031); Immature Granulocyte Percent A 0.2 % (0-0.5); Lymphocytes Percent Auto 28.4 % (18.3-44.2); Mean Corpuscular HGB Conc 33.3 g/dl (32-36); Mean Corpuscular Hemoglobin 32.5 pg (26-34); Mean Corpuscular Volume 97.4 fl (80-100); Mean Platelet Volume 11.2 fl (7.4-10.4); Monocytes Absolute Auto 0.5 K/mm3 (0.1-0.6); Monocytes Percent Auto 9.5 % (2.6-8.5); Neutrophils Absolute Auto 3.2 K/mm3 (1.3-6.7); Neutrophils Percent Auto 60.2 % (45.5-73.1); Platelet Count Result 165 k/mm3 (150-375); Red Blood Count 3.88 M/mm3 (4.2-5.4); Red Cell Distribution Width 12.3 % (11.5-14.5); White Blood Count 5.3 K/mm3 (4.5-10.0)
[2024-07-10 18:00] LABS: Prothrombin Time 13.1 Seconds (11.1-14.7)
[2024-07-10 18:01] VITALS: BP 141/60; PULSE 69; RESP 16; O2SAT 94
[2024-07-10 18:01] LABS: Anion Gap 4 mmol/L (4-12); Blood Urea Nitrogen 20 mg/dL (7-17); Calcium 9.7 mg/dL (8.4-10.2); Carbon Dioxide 30 mmol/L (22-30); Chloride 101 mmol/L (98-107); Estimated CRCL calculation 41 ml/min; Estimated Glomerular Filt Rate > 60; Glucose 110 mg/dL (65-110); Partial Thromboplastin Time 26.3 Seconds (22.3-36.8); Potassium 3.9 mmol/L (3.4-5.0); Sodium 135 mmol/L (137-145)
[2024-07-10 21:11] VITALS: BP 137/59; PULSE 74; RESP 16; O2SAT 97
== END 2024-07-10 21:12 | disposition home or self-care (01) ==
PROVIDERS: Emergency Provider Student in an Organized Health Care Education/Training Program; PCP Pediatrics
DX: S52.502A Unspecified fracture of the lower end of left radius, initial encounter for closed fracture (principal); S62.002A Unspecified fracture of navicular [scaphoid] bone of left wrist, initial encounter for closed fracture; S62.301A Unspecified fracture of second metacarpal bone, left hand, initial encounter for closed fracture; W00.0XXA Fall on same level due to ice and snow, initial encounter; K21.9 Gastro-esophageal reflux disease without esophagitis; F41.9 Anxiety disorder, unspecified
CPT/HCPCS: 29125; 36415; 70450; 73070; 73100; 80048; 85025; 85610; 85730; 96374; 99284; A4565; J1171

== ENCOUNTER 2024-07-15 13:27 | Outpatient (CLI) | payer MEDICARE, SELFPAY ==
--- NOTE | 2024-07-15 14:40 | ECG_ITS ---
Test Date: 2024-07-15 14:51:57 Measurements Intervals [place] Rate: 74 P: 99 IN: 156 QRS: -9 QRSD: 86 T: 32 QT: 330 QTc: 367 Interpretive Statements SINUS RHYTHM No previous ECG available for comparison Electronically Signed On 07-15-2024 15:21:17 COLD WORK OPERATOR by Jose A Azevedo M.D.
== END 2024-07-15 13:28 | disposition home or self-care (01) ==
PROVIDERS: PCP Pediatrics; Visit Provider Orthopaedic Surgery
DX: E78.5 Hyperlipidemia, unspecified (principal)
CPT/HCPCS: 93005

== ENCOUNTER 2024-07-19 00:23 | Day surgery (SDC) | payer MEDICARE, SELFPAY ==
[2024-07-15 13:07] VITALS: BMI 23.3
--- NOTE | 2024-07-15 13:18 | PC.NURSE ---
Addendum entered by Gely Vallecillo RN 07/15/24 13:24: PT was also reminded to HOLD all Motrin/Ibuprofen for 7 days prior to surgery per Dr Rossi. Date pt was to take last dose was 07/11/24. SHe will take Tylenol or Oxycodone as directed Original Note: Report to the Outpatient Waiting Room, entrance under the green pavilion located off [facility], at time __1000am on date _07/19/24 . Planned Procedure Time: _1200pm .? Time changes happen often and if your time is changed the preop area will call you the afternoon before. - You and your visitor will be asked to self-screen and do not enter if you have any COVID symptoms. Please call surgeon if you need to reschedule. - A mask is optional within the hospital at this time. Patients may have clear liquids (water, carbonated beverages, clear teas, apple juice) until 3 hours prior to surgery with a maximum of 20 ounces. - No food from midnight until time of surgery and no smoking. This includes no chewing gum, candy or mints.( 0930am) - Take only the following medications with a SIP of water on the morning of surgery: _Levothyroxine, Tylenol or Oxycodone DO NOT STOP ANY OF YOUR OTHER PRESCRIPTION MEDICATIONS PRIOR TO SURGERY EXCEPT THE FOLLOWING Medications to discontinue per physician ___Hold all Multiple vitamins and supplements for 3 days prior to surgery Date to take last dose____07/15/24 Please no make-up, nail thai, hairspray, perfume, deodorant, or body powder the day of surgery.? No jewelry (including any body piercings) or valuables the day of surgery, leave them at home.? Please take a shower or bath the night before, or the morning of, surgery with an antibacterial soap.? Wear comfortable, loose fitting clothing.? - Jewelry must be removed prior to entering the operating room.? Rings and piercings that are not removed may be cut off. - The hospital will not accept responsibility for valuables.? - Please leave all valuables, including medications, at home the day of surgery. If you are going home after surgery, a licensed wrecker driver must drive you home.? - NO public transportation without another adult if you receive anesthesia. - We recommend that an adult stay with you for 24 hours following discharge. - We also recommend that you do not drive, make important decision, drink alcoholic beverages, or take any drugs that were not prescribed by your health care provider for at least 24 hours after your discharge time. Follow any additional instructions given to you from your surgeon. Telephone instructions given to _Patient and asked if any additional questions and then verbalized understanding. Patient advised to call surgeon office or pre surgery nurse liaison [phone] if any additional questions.
[2024-07-19] VITALS (8 sets, daily range): BP systolic 130–148; BP diastolic 55–72; PULSE 80–98; RESP 11–20; TEMP 36.1–36.2; O2SAT 98–100
--- NOTE | ~2024-07-19 | XR_ITS ---
EXAMINATION: XR surgery orthopedic DATE: 07/19/2024 13:22 INDICATION: Distal left radius fracture. TECHNIQUE: 4 intraoperative fluoroscopic views of left wrist were obtained. I was not present. Fluoro scopy exposure time was 49 seconds. COMPARISON: Left wrist radiographs 07/10/2024 FINDINGS: There is a comminuted fracture of distal radius in near-anatomic alignment status post open reduction internal fixation with volar plate and screws. There is heterotopic ossification distal to ulnar styloid, likely chronic. There is mild osteoarthritis of first carpometacarpal joint. IMPRESSION: 1. Comminuted fracture of distal radius status post open reduction internal fixation. Reviewed, dictated and finalized at location B. ION AGENT IMPRESSION: 1. Comminuted fracture of distal radius status post open reduction internal fix ation.
--- NOTE | 2024-07-19 07:27 | WPDHPUPDATE1 ---
History and Physical Update Update Date/Time: 07/19/24 07:27 History and Physical has been reviewed, including an updated exam of the patient. There are NO changes in the patient's condition. Risks, benefits, and alternatives have been discussed and questions answered. Patient agrees to proceed with procedure.
[2024-07-19] MEDS: ACETAMINOPHEN 500 MG TABLET 1000 MG PO (10:25)
[2024-07-19] MEDS: LACTATED RINGERS 1,000 ML 30 ML IV CONT (10:30)
[2024-07-19] MEDS: KETOROLAC 15 MG/ML VIAL (*BKC) IV PUSH (10:30)
[2024-07-19] MEDS: BUPIVACAINE/EPINEPHRINE 0.5% 10 ML VIAL INFILTRATE (10:48)
--- NOTE | 2024-07-19 10:53 | SUR.PREOP ---
SPLINT REMAINING IN PLACE, SCRUB AND HAIR REMOVAL DEFERRED
--- NOTE | 2024-07-19 11:45 | P.PNAN_ITS ---
Anes - Initial Pre Proc Eval Procedure: Operation Date: 07/19/24 12:00 Proposed Procedures p Open Reduction Internal Fixation Left Distal Radius Fracture - To Rossi MD Date/Time: 07/19/24 11:45 Surgeon: To Rossi MD Pre Op Diagnosis: left distal radius fx Patient Data Age: 83 Gender: F Height: 1.55 m Weight: 55.4 kg Last Vital Signs Temp 97.2 F L 07/19/24 10:23 Pulse 80 07/19/24 10:23 Resp 18 07/19/24 10:23 BP 146/72 H 07/19/24 10:23 Pulse Ox 100 07/19/24 10:23 O2 Del Method Room Air 07/19/24 10:23 Allergies Allergy/AdvReac Type Severity Reaction Status Date / Time Sulfa (Sulfonamide Allergy Intermediate HIVES Verified 07/19/24 10:46 Antibiotics) SULFAMERAZINE (Generic Allergy Unknown HIVES Uncoded 07/19/24 10:46 Allergy) Home Medications ?Medication ?Instructions ?Recorded ?Confirmed ?Type atorvastatin 20 mg tablet 20 mg PO DAILY 11/30/20 07/19/24 History levothyroxine 50 mcg capsule 50 mcg PO DAILY 11/30/20 07/19/24 History clobetasol 0.05 % topical cream 1 applic topical 2XW 12/07/20 07/15/24 History cranberry extract-vitamin C 1 cap PO DAILY 09/14/21 07/19/24 History denosumab 60 mg/mL subcutaneous 60 mg subcut [id number] 09/14/21 07/15/24 History syringe (Prolia) multivit, calcium and 1 tablet PO DAILY 09/14/21 07/19/24 History minerals-vitamin D3-herbal#181 1,000 unit tablet acetaminophen 500 mg tablet 1,000 mg (2 x 500 mg) PO TID PRN 07/10/24 07/19/24 Rx (Tylenol Extra Strength) pain #30 tabs ibuprofen 600 mg tablet 600 mg PO TID PRN pain #20 tabs 07/10/24 07/19/24 Rx oxycodone 5 mg tablet 5 mg PO Q8H PRN pain #10 tabs 07/10/24 07/15/24 Rx conjugated estrogens 0.625 mg/gram 1 applic vaginal .twice weekly 07/15/24 07/15/24 History vaginal cream (Premarin) Patient hx anesthesia problems: none Family hx anesthesia problems: none Results Review: All pre-operative results and documents have been reviewed as part of the pre- operative evaluation. REPLACED BY [facility] Past Medical History Medical History Osteopenia Urinary frequency Wears glasses Castano cyst Chondrocalcinosis Degenerative joint disease of knee Headache GERD (gastroesophageal reflux disease) Anxiety Surgical History Surgical History H/O Spinal surgery disc approx 1989 per patient questionnaire History of hysterectomy 1999 per patient questionnaire History of tonsillectomy 194 per patient questionnaire Family History Family History Father Malignant neoplasm of prostate Grandparent Small cell lung cancer Other Cerebrovascular accident Rheumatoid arthritis Social History Social History Smoking status: Never smoker Alcohol intake: never Substance use: never Substance use type: does not use Do You Feel Safe in your Home?: Yes Lack of Transportation: No Lack of Food: Never True Current Housing: I Have Housing Concerned About Future Housing: No Difficulty Paying Gas/Electric Bills: No Currently Unemployed: No Education: Master's Degree or Higher Difficulty w/ Childcare or Family Care: No Living arrangements: alone Occupation/Education: retired Additional occupation/education comments: German Gender identity (if verbalized by the patient): Female Sexual Orientation (if Verbalized by the Patient): Straight or Heterosexual Spiritual care concerns: No Agree to blood products: Yes Anes - Eval Final PreProcedure Day of Procedure 07/19/24 11:45 Patient weight: normal and thin Heart: regular rate and rhythm Lungs: clear to auscultation Airway: Mallampati scale Neurological: alert and oriented Last oral intake: >/= 8 hours ASA classification: II Emergent: no Anesthetic plan: proceed Anesthesia type and monitoring: general LMA and standard monitoring Results Review: All pre-operative results and documents have been reviewed as part of the pre- operative evaluation. Hyperlipidemia, hypothyroidism. Pt w good health, walks her dog, slip on ice and fell. EKG NSR. Informed Consent: The patient's anesthetic plan and its attendant risks and benefits were discussed with the patient/family/POA. Questions were solicited and answers provided to the satisfaction of the patient/family/POA.
[2024-07-19] MEDS: ceFAZolin 2 GM/D5W 50 ML 2 GM/50 ML BAG IVPB (12:11)
--- NOTE | 2024-07-19 13:32 | W.PM.PROC2 ---
Procedure Note - Detailed Date of Procedure 07/19/24 Pre-op Diagnosis Left distal radius displaced extra-articular fracture. Post-op Diagnosis Same Procedure Performed ORIF left distal radius displaced extra-articular fracture. Surgeon To Rossi MD Anesthesia General Indications 50 degree dorsal angulation. Findings Satisfactory bone quality. Near anatomic reduction. Standard narrow locked volar plate Description of Procedure Preoperative antibiotics were given. A general anesthetic was administered. The hand was prepped and draped in the usual sterile fashion with a well-padded tourniquet. The limb was exsanguinated and the tourniquet inflated to 250 millimeters of mercury. A longitudinal incision was created over the flexor carpi radialis tendon. Dissection was brought down through the sheath. The pronator quadratus was identified and released off of the radius. 5 pounds of finger trap traction applied. The fracture was carefully exposed and cleared of debris. Reduction was obtained with traction and manipulation. Fluoroscopy was used to confirm anatomic reduction. The volar plate was placed on the radius and the position was confirmed. Provisional pins were placed. The dynamic cortical screw was applied. The plate was fine tuned and fluoroscopy was use to confirm that the joint would not be violated. Subsequent distal pins and screws were placed, followed by the proximal row. The wound was irrigated and closed. 3-0 Monocryl suture was used to reapproximate the pronator quadratus. The tourniquet was released and meticulous hemostasis was confirmed. The skin was closed with 3-0 Monocryl suture and a running 4-0 Monocryl suture. Steri-Strips were applied on the skin. A sterile bulky dressing with a volar splint was applied. Implants Arthrex narrow distal radius volar plate. Multiple locking screws and 2 proximal compression screws. Estimated Blood Loss 10 Drains No Packing No Pathology None sent Complications No immediate complications Condition Stable Disposition PACU [facility] Billing Surgery - Charge Forward: Surgery Billing
[2024-07-19] MEDS: oxyCODONE HCL (*CRX) 5 MG TAB IR PO (14:21)
--- OUTSIDE RECORDS SUMMARY | 2024-07-22 11:07 | XMS_ITS | Encounter Summary ---
Author Organization [facility] Address [address] [place] [address]. [place] [address] [place] [address] Care Team Providers Care Box Turner Name Role Phone Joshua Murphy MD Primary Care Provide r Reason for Visit * Reason Comments CT (SCAN) Image (SCAN) Encounter Details Date Type Department Care Team (Late Contact Info) Description 07/10/2024 Scan HEALTH INFO SRVCS Scanned, Doc Med Group CT (SCAN); Image (SCAN) Social History Tobacco Use Types Packs/Day Years Used Date Smoking Tobacco: Never Smokeless Tobacco: Never Alcohol Use Standard Drinks/Week Comments Not Currently 0 (1 standard drink = 0.6 oz pur e alcohol) PHQ-2 Answer Date Recorded Patient Health Questionnaire-2 Score 0 02/03/2024 Comments No Sex and Gender Information Value Date Recorded Sex Assigned at Not on file Legal Sex Female 5:36 PM CDT Gender Identity Not on file Sexual Orientation Not on file documented as of this encounter Plan of Treatment Upcoming Encounters Date Type Department Care Team (Late Contact Info) Description 08/05/2024 1:00 PM TOOL AND EQUIPMENT RENTAL CLERK Office Visit [facility] [address] [address] [place] [phone] [place] [address] [place] [address] documented as of this encounter Procedures Procedure Name Priority Date/Time Associated Diagnosis Comments CT GENERIC 07/10/2024 IMAGE GENERIC 07/10/2024 IMAGE GENERIC 07/10/2024 documented in this encounter Results * IMAGE GENERIC (07/10/2024) Anatomical Region Laterality Modality Other 07/10/2024 [facility] Scanned SCANNING Final Resu lt * IMAGE GENERIC (07/10/2024) Anatomical Region Laterality Modality Other 07/10/2024 [facility] Scanned SCANNING Final Resu lt * CT GENERIC (07/10/2024) Anatomical Region Laterality Modality Other 07/10/2024 [facility] Scanned SCANNING Final Resu lt documented in this encounter Visit Diagnoses Not on filedocumented in this encounter Care Teams Box Turner Relationship Specialty [place] [address] [place] [id number] PCP - General INTERNAL MEDICINE 02/09/19 documented as of this encounter
--- OUTSIDE RECORDS SUMMARY | 2024-07-22 11:07 | XMS_ITS | Clinical Summary ---
Author Organization [facility] Address [facility] [place] [address] [place] [address] Care Team Providers Care Chief Juvenile Probation Officer Name Role Phone Joshua Murphy MD Primary Care Provide r Allergies Active Allergy Reactions Criticality Noted Date Comments Escitalopram Other (see comment) 09/20/2016 feels cold Sulfa Antibiotics Hives,Rash Low 02/22/2016 Medications PREMARIN 0.625 MG/GM vaginal cream LEILANI 1 GRAM VAGINALLY 2 TIMES A WK 3 09/17/19 18 Active Calcium Citrate-Vitamin D (CALCIUM + D OR) Take 1 tablet by mouth 2 (two) times daily. 02/22/20 16 Active clobetasol 0.05 % cream Apply topically see administration instructions. 2x weekly PM 08/05/19 17 Active acetaminophen 500 MG tablet Take 1 tablet (500 mg total) by mouth every 6 (six) hours as needed for Pain. Active cranberry 450 MG Tab tablet Take 1 tablet (450 mg total) by mouth daily. Active denosumab (PROLIA) 60 MG/ML injection Prolia 60 mg/mL subcutaneous syringe Inject 1 mL as needed by subcutaneous route as directed for 1 day. Active rizatriptan (MAXALT) 10 MG tabletIndications: Other migraine with status migrainosus, not intractable TAKE 1 TABLET BY MOUTH NEEDED FOR MIGRAINE; MAY REPEAT IN 2 HOURS IF NEEDED; MAX 2 TABLETS IN 24 HOURS 10 tablet 5 10/27/19 24 Active atorvastatin (LIPITOR) 20 MG tabletIndications: Mixed hyperlipidemia take 1 tablet by mouth every day 90 tablet 2 12/16/19 24 Active diphenoxylate-atro pine (LOMOTIL) 2.5-0.025 MG tabletIndications: Chronic diarrhea Take 1 tablet by mouth 2 (two) times a day. 60 tablet 5 02/03/20 24 Active levothyroxine (SYNTHROID) 50 MCG tabletIndications: Acquired hypothyroidism TAKE 1 TABLET(50 MCG) BY MOUTH 5 TIMES A WEEK 20 tablet 11 04/12/20 24 Active levothyroxine (SYNTHROID) 75 MCG tabletIndications: Acquired hypothyroidism Take 1 tablet (75 mcg total) by mouth every morning. 30 tablet 11 05/13/20 24 Active Active Problems Problem Noted Date Diagnosed Date Acute reaction to situational stress 02/11/2024 Chronic diarrhea 02/11/2024 Age-related osteoporosis wit hout current pathological fracture 12/26/2022 Immunization counseling 12/26/2022 Recurrent UTI 06/01/2020 Migraine without aura and wi thout status migrainosus, not intractable 06/11/2019 Cyst, dermoid, scalp and neck 12/18/2018 Mixed hyperlipidemia 02/21/2015 Overview (09/03/2018): Other and unspecified hyperlipidemia Gastroesophageal reflux disease without esophagi tis 03/26/2013 Overview (09/03/2018): Dyspepsia and other specified disorders of function of stomach Hypothyroidism 07/11/2012 Overview (09/03/2018): Unspecified hypothyroidism Encounters Date Type Department Care Team Description 07/19/2024 Scan [facility] SRVCS Scanned, Doc Med Group Image (SCAN) 07/10/2024 Scan HEALTH INFO SRVCS Scanned, Doc Med Group CT (SCAN); Image (SCAN) 05/13/2024 Telephone [facility] [address] [place] [address] Joshua Murphy MD Medication (LEVOTHYROXINE) 04/29/2024 10:59 AM CDT - 04/29/2024 11:59 PM CDT Hospital Encounter [facility] [address] [place] [address] Delaney Marshall MD Discharge Disposition: Home or Self Care (Routine Discharge) 04/29/2024 Travel from Last 3 Months Immunizations Name Administration Dates Next Due Arexvy Respiratory Syncytial Virus (RSV, adjuvanted) 0.5 mL, PF 03/18/2023 Fluzone High Dose - >Age 65 (Prefilled Syringe) 03/15/2023,04/07/2022,03/04/2020,2018,03/12/2018 Influenza (Generic) 03/24/2016,03/22/2012 Influenza Adult (Generic) 03/03/2021,,03/23/2016,2014,03/17/2014,03/17/2013 MODERNA COVID-19 (12+), MRNA , LNP-S, PF, 50 MCG/0.5 ML (SPIKEVAX) 03/18/2023 PFIZER COVID-19 (THOMPSON CAP), MRNA, LNP-S, PF, 30 MCG/0.3 ML MARLO-SUCROSE, IM 10/13/2021 PFIZER COVID-19 (ORIGINAL FORMULATION, PURPLE CAP) mRNA, LNP-S, PF, 30 MCG/0.3 ML DOSE 03/27/2021,09/03/2020,08/10/2020 PFIZER COVID-19 BIVALENT (12 +) mRNA, LNP-S, PF, 30 MCG/0.3 ML DOSE 04/07/2022 Pneumococcal (Pneumovax 23) 05/30/2010 Pneumococcal (Prevnar 13) 04/16/2018 Tdap (Generic) 05/30/2010 Zoster (Zostavax) [address] Unt/0.65Ml 06/30/2005 Family History Medical History Relation Comments Breast Cancer Maternal Aunt UNSURE OF AGE Relation Status Comments Father Maternal Aunt Alive Mother Social History Tobacco Use Types Packs/Day Years Used Date Smoking Tobacco: Never Smokeless Tobacco: Never Tobacco Cessation:Counseling Given: No Alcohol Use Standard Drinks/Week Comments Not Currently 0 (1 standard drink = 0.6 oz pur e alcohol) PHQ-2 Answer Date Recorded Patient Health Questionnaire-2 Score 0 02/03/2024 Comments No Sex and Gender Information Value Date Recorded Sex Assigned at Not on file Legal Sex Female 5:36 PM CDT Gender Identity Not on file Sexual Orientation Not on file Last Filed Vital Signs Vital Sign Reading Time Taken Comments Blood Pressure 100/62 02/03/2024 2:57 PM CDT Pulse 83 02/03/2024 2:57 PM CDT Temperature 36.7 ??C (98.1 ??F) 02/03/2024 2:57 PM CD T Respiratory Rate 18 02/03/2024 2:57 PM CDT Oxygen Saturation 95% 02/03/2024 2:57 PM CDT Inhaled Oxygen Concentration - - Weight 57.8 kg (127 lb 6.4 oz) 02/03/2024 2:57 P M CDT Height 157.5 cm (5' 2 ) 05/23/2020 10:45 AM SENIOR PROGRAM ANALYST Body Mass Index 23.3 05/23/2020 10:45 AM SENIOR PROGRAM ANALYST Plan of Treatment Upcoming Encounters Date Type Department Care Team (Late st Contact Info) Description 08/05/2024 1:00 PM SENIOR PROGRAM ANALYST Office Visit [facility] [address] [place] [phone] [place] [address] [place], [place] [id number] Health Maintenance Due Date Last Done Comments Zoster Vaccines (2 of 3) 08/25/2005 06/30/2005 Annual Medicare Wellness Visit 2007 DTaP, Tdap and Td Vaccines (2 - Td or Tdap) 05/30/2020 05/30/2010 COVID-19 Vaccine ( season) 2024 03/18/2023, 04/07/2022, 10/13/2021, Additional history exists Influenza Adult (#1) 2024 03/15/2023, 04/07/2022, 03/03/2021, Additional history exists PHQ-2 (Physician [place]) 02/02/2025 02/03/2024 Pneumococcal Vaccine: 65+ Years Completed 04/16/2018, 05/30/2010 RSV Immunization or 60+ Years Completed 03/18/2023 Dexa Scan (General) Completed 04/29/2024, 03/30/2021, 02/09/2019 Meningococcal Vaccine Aged Out No crystal bandar eligible based on patient's age to complete this topic RSV Immunizations Under 20 Months Aged Out No longer eligible based on patient's age to complete this topic Procedures Procedure Name Priority Date/Time Associated Diagnosis Comments IMAGE GENERIC 07/19/2024 CT GENERIC 07/10/2024 IMAGE GENERIC 07/10/2024 IMAGE GENERIC 07/10/2024 MG SCREENING W CHEL JOSIE DIGI Routine 04/29/2024 11:28 AM CDT Encounter for screening mammogram for malignant neoplasm of breast BONE DENSITY/DEXA Routine 04/29/2024 11: 14 AM CDT Osteoporosis from Last 3 Months Results * IMAGE GENERIC (07/19/2024) Only the most recent of3 resultswithin the time period is included. Anatomical Region Laterality Modality Other 07/19/2024 [facility] Scanned SCANNING Final Resu lt * CT GENERIC (07/10/2024) Anatomical Region Laterality Modality Other 07/10/2024 [facility] Scanned SCANNING Final Resu lt * MG SCREENING W CHEL JOSIE DIGI (04/29/2024 11:28 AM CDT) Anatomical Region Laterality Modality Breast Bilateral Mammography 04/29/2024 12:1 9 PM CDT Impressions 04/29/2024 12:38 PM CDT ===== IMPRESSION: ===== 1. ??Stable mammographic appearance with no new findings to suggest malignancy in either breast. Assessment: ACR BI-RADS 1 - NEGATIVE Recommendation: 1:Routine Screening Bilateral Comments: Ordered By: DELANEY MARSHALL Interpreted By: Ricky Cervantes, 04/29/2024 12:19 PM Narrative 04/29/2024 12:38 PM CDT [facility] [address] [place] [address] EXAMINATION: Digital bilateral screening mammogram with 3-D tomosynthesis EXAM DATE/TIME: 04/29/2024 11:01 AM REASON FOR EXAM: ??SCREENING MAMMO ? Benign left breast biopsy. Breast carcinoma in maternal aunt. COMPARISON: 04/16/2023. 04/03/2022. Technique: Digital screening mammography of both breasts was performed in addition to 3-D Tomosynthesis technique. This study was read with the assistance of a computer-aided detection system. Tissue density: The breasts are heterogeneously dense, which may obscure small masses. Findings: There is no new focal asymmetry, dominant mass lesion, area of skin thickening, or cluster of suspicious appearing calcifications in either breast to suggest malignancy. us Delaney Marshall MD MAMMO Final Result * BONE DENSITY/DEXA (04/29/2024 11:14 AM CDT) Anatomical Region Laterality Modality Bone Bone Density 04/30/2024 8:22 AM CDT Impressions 04/30/2024 8:24 AM CDT IMPRESSION: WHO Classification: Osteopenia of the bilateral hips. ??Improved bone mineral density of the left hip compared to 2019. FRAX Score 10-year fracture risk: ?? Major Osteoporotic Fracture: 16% Hip Fracture: 5.5% Ordered By: DELANEY MARSHALL Interpreted By: Noe Gracia MD, 04/30/2024 8:22 AM Narrative 04/30/2024 8:24 AM CDT [facility] [address] [place] [address] Examination: Bone Density Axial Exam Date/Time: 04/29/2024 11:02 AM Reason For Exam: Postmenopausal screening. Comparison DEXA: 02/09/2019 Findings: ??DEXA bone densitometry ?The bone mineral density (BMD) was determined by dual-energy x-ray absorptiometry, the results are as follows: ?AP Lumbar Spine L1 through L4 ?BMD Patient (/[facility]): 0.821 ?T-Score (Standard deviations from young adult peak bone density): -2.1 (Previous T score: -2.5) ?Left femoral neck: ?BMD Patient (/[facility]): 0.639 ?T-Score (Standard deviations from young adult peak bone density): -1.9 (Previous T score: -2.8) ? Total left femur: ?BMD Patient (/[facility]): 0.735 ? T-Score (Standard deviations from young adult peak bone density): -1.7 (Previous T score: -2.2) ?Right femoral neck: ?BMD Patient (/[facility]): 0.589 ?T-Score (Standard deviations from young adult peak bone density): -2.3 (Previous T score: not available) ? Total right femur: ?BMD Patient (GM/SQCM): 0.672 ? T-Score (Standard deviations from young adult peak bone density): -2.2 (Previous T score: not available) Recommendations: All patients should ensure an adequate intake of dietary calcium and vitamin D. The NOF recommend adults under the age of 50 need 1000 mg of calcium and 400-800 IU of vitamin D daily. Effective therapy for the prevention and treatment of osteoporosis include biphosphonates. Follow-up: People with diagnosed cases of osteoporosis or at high risk for fracture should have regular bone mineral density test. For patients eligible for Medicare, routine testing is allowed once every 2 years. Testing frequency can be increased to one year for patients who have rapidly progressing disease, those who are receiving or discontinuing medical therapy to restore bone mass, or have additional risk factors. Procedure Note Noe Gracia MD - 04/30/2024 [facility] [address] [place] [address] Examination: Bone Density Axial Exam Date/Time: 04/29/2024 11:02 AM Reason For Exam: Postmenopausal screening. Comparison DEXA: 02/09/2019 Findings: DEXA bone densitometry The bone mineral density (BMD) was determined bydual-energy x-ray absorptiometry, the results are as follows: AP Lumbar Spine L1 through L4 BMD Patient (GM/[facility]): 0.821 T-Score (Standard deviations from young adult peak bonedensity): -2.1 (Previous T score: -2.5) Left femoral neck: BMD Patient (GM/SQCM): 0.639 T-Score (Standard deviations from young adult peak bonedensity): -1.9 (Previous T score: -2.8) Total left femur: BMD Patient ([facility]): 0.735 T-Score (Standard deviations from young adult peak bonedensity): -1.7 (Previous T score: -2.2) Right femoral neck: BMD Patient (GM/SQCM): 0.589 T-Score (Standard deviations from young adult peak bonedensity): -2.3 (Previous T score: not available) Total right femur: BMD Patient (GM/SQCM): 0.672 T-Score (Standard deviations from young adult peak bonedensity): -2.2 (Previous T score: not available) Recommendations: All patients should ensure an adequate intake of dietary calcium andvitamin D. The NOF recommend adults under the age of 50 need 1000 mg ofcalcium and 400-800 IU of vitamin D daily. Effective therapy for theprevention and treatment of osteoporosis include biphosphonates. Follow-up: People with diagnosed cases of osteoporosis or at high risk for fractureshould have regular bone mineral density test. For patients eligible forMedicare, routine testing is allowed once every 2 years. Testing frequencycan be increased to one year for patients who have rapidly progressingdisease, those who are receiving or discontinuing medical therapy torestore bone mass, or have additional risk factors. IMPRESSION: WHO Classification: Osteopenia of the bilateral hips. Improved bonemineral density of the left hip compared to 2019. FRAX Score 10-year fracture risk: Major Osteoporotic Fracture: 16% Hip Fracture: 5.5% Ordered By: DELANEY MARSHALL Interpreted By: Noe Gracia MD, 04/30/2024 8:22 AM Delaney Marshall MD DEXA Final Result from Last 3 Months Insurance [employer] Care Teams Chief Juvenile Probation Officer Relationship Specialty [place] [address] [place] [id number] PCP - General INTERNAL MEDICINE 02/09/19
--- OUTSIDE RECORDS SUMMARY | 2024-07-22 11:07 | XMS_ITS | Encounter Summary ---
Author Organization [facility] Health Address [address] [place] [address] Care Team Providers Care Trim Setter Name Role Phone Joshua Murphy MD Primary Care Provide r Encounter Details Date Type Department Care Team (Late st Contact Info) Description 06/11/2018 Lab Requisition [facility] Care DermPath Lab [address] [facility], [place] [address] Felicia Huffman MD [address] [facility] 3 [place] [address] Social History Tobacco Use Types Packs/Day Years Used Date Smoking Tobacco: Never Assessed Sex and Gender Information Value Date Recorded Sex Assigned at Not on file Gender Identity Not on file Sexual Orientation Not on file documented as of this encounter Plan of Treatment Not on file documented as of this encounter Procedures Procedure Name Priority Date/Time Associated Diagnosis Comments DERMATOPATH TECHNICAL REPORT Routine 06/10/2018 12:[address] SUPERVISOR OF ENGINES documented in this encounter Results * DERMATOPATH TECHNICAL REPORT (06/10/2018 12:[address] SUPERVISOR OF ENGINES) Case Report Dermatopathology Report ? Case: [id number] ? Authorizing Provider: ??Felicia Huffman MD ? Collected: ? 06/10/2018 12:00 AM ? Pathologist: ? Braden Balbuena MD ? Received: ?06/11/2018 06:53 AM ? Specimen: ?Skin, right mid FA ? 11:25 AM [facility] DERMATOPATHOLOGY LABORATORY Clinical History R/O BCC, biopsy proven. Check margins. 11:25 AM [facility] DERMATOPATHOLOGY LABORATORY Gross Description Specimen A: Received is one formalin filled container labeled with the patient's name and designated right mid FA. The specimen consists of a non-oriented ellipse of skin measuring [id number]. The epidermal surface consists of a centrally located 5x5mm previous biopsy site. The margin is inked green. The 12 o'clock and 6 o'clock tips are submitted in cassette 1. The remainder of the ellipse is serially sectioned and submitted in cassettes 2-3. Jar 0. [facility] Dermatopathology Laboratory performed the technical component only. 11:25 AM [facility] DERMATOPATHOLOGY LABORATORY Embedded Images 11:25 AM [facility] DERMATOPATHOLOGY LABORATORY DISCLAIMER An external and internal positive and negative controls are appropriate for the histochemical, immunohistochemical and immunofluorescence stain(s) in this case (if any), except where stated explicitly. The performance characteristics of the stain(s) cited in this report were developed and its performance characteristic determined by the Dermatopathology Laboratory at [facility]. These tests need not be, and therefore are not, approved by the [place] Food and Drug Administration. The tests are used for clinical purposes. 11:25 AM [facility] DERMATOPATHOLOGY LABORATORY Pathology/Cytolog y TISSUE SPECIMEN FROM SKIN / Unknown 06/10/2018 06/11/2018 6:53 AM [facility] Felicia Huffman MD LAB - PATHOLOGY/CYT OLOGY ORDERABLES DERMATOPATHOLOGY LABORATORY [facility] - Department of Dermatology [facility] [facility] 5th Floor Lab B [address] [phone] documented in this encounter Visit Diagnoses Not on filedocumented in this encounter Care Teams Trim Setter Relationship Specialty Start Date End Date Joshua Murphy MD [address] [place] [address] PCP - General 10/10/17 documented as of this encounter
--- OUTSIDE RECORDS SUMMARY | 2024-07-22 11:07 | XMS_ITS | Encounter Summary ---
Author Organization [facility] Health Address [address] [facility] [place] [address] Care Team Providers Care Accredited Pharmacy Technician Name Role Phone Joshua Murphy MD Primary Care Provide r Encounter Details Date Type Department Care Team (Late st Contact Info) Description 04/13/2018 Lab Requisition [facility] Care DermPath Lab [address] [facility], [place] [phone] Felicia Huffman MD [address] [facility] [address] [place] [address] Social History Tobacco Use Types Packs/Day Years [...] Associated Diagnosis Comments DERMATOPATH TECHNICAL REPORT Routine 04/10/2018 12:00 AM CDT documented in this encounter Results * DERMATOPATH TECHNICAL REPORT (04/10/2018 12:00 AM CDT) Case Report Dermatopathology Report ? Case: [id number] ? Authorizing Provider: ??Felicia Huffman MD ? Collected: ? 04/10/2018 12:00 AM ? Pathologist: ? Sahra Duarte MD ?Received: ?04/13/2018 06:46 AM ? Specimen: ?Skin, right mid forearm ? 10:59 AM T DERMATOPATHOLOGY LABORATORY Clinical History R/O BCC, irritated, non-healing. Check margins. 10:59 AM [facility] DERMATOPATHOLOGY LABORATORY Gross Description Specimen A: Received is one formalin filled container labeled with the patient's name and designated right mid forearm. The specimen consists of a shave measuring 1x3t5xm. The margin is inked green. Jar 0. [facility] Dermatopathology Laboratory performed the technical component only. 10:59 AM T DERMATOPATHOLOGY LABORATORY Embedded Images 10:59 AM T DERMATOPATHOLOGY LABORATORY DISCLAIMER An external and internal positive and negative controls are appropriate for the histochemical, immunohistochemical and immunofluorescence stain(s) in this case (if any), except where stated explicitly. The performance characteristics of the stain(s) cited in this report were developed and its performance characteristic determined by the Dermatopathology Laboratory at [facility]. These tests need not be, and therefore are not, approved by the [place] Food and Drug Administration. The tests are used for clinical purposes. 10:59 AM [facility] DERMATOPATHOLOGY LABORATORY Pathology/Cytolog y TISSUE SPECIMEN FROM SKIN / Unknown 04/10/2018 04/13/2018 6:46 AM CDT Felicia Huffman MD LAB - PATHOLOGY/CYT OLOGY ORDERABLES DERMATOPATHOLOGY LABORATORY [facility] - Department of Dermatology [address] [facility], 5th Floor Lab [address] [phone] documented in this encounter Visit Diagnoses Not on filedocumented in this encounter Care Teams Accredited Pharmacy Technician Relationship Specialty Start Date End Date Joshua Murphy MD [address] [place] [address] PCP - General 10/10/17 documented as of this encounter
--- OUTSIDE RECORDS SUMMARY | 2024-07-22 11:07 | XMS_ITS | Referral Summary ---
Author Organization [facility] Address [address] [place] [address] Care Team Providers Care Back Digger Operator Name Role Phone Joshua Murphy MD Primary Care Provider Encounters Date Type Department Care Team Description 05/04/2024 10:15 AM WHEEL INSTALLER Office Visit [facility]venient Care at [address] [address] Ashley Henriquez PA Dizziness (Primary Dx) from Last 3 Months Allergies Active Allergy Reactions Criticality Noted Date Comments Adhesive Rash Medium 05/04/2024 Medications acetaminophen (TYLENOL) 500 mg tablet Take 1 tablet (500 mg total) by mouth every 6 (six) hours as needed Active calcium citrate-vitamin D3 250 mg-5 mcg (200 unit) tablet Take 1 tablet by mouth 2 (two) times a day 6 Active cranberry fruit 450 mg tablet Take 450 mg by mouth daily Active atorvastatin (LIPITOR) 20 mg tablet Take 1 tablet (20 mg total) by mouth daily Active clobetasoL (TEMOVATE) 0.05 % cream Apply topically 7 Active denosumab (Prolia) 60 mg/mL syringe Prolia 60 mg/mL subcutaneous syringe Inject 1 mL as needed by subcutaneous route as directed for 1 day. 2 Active diphenoxylate-a tropine (LOMOTIL) 2.5-0.025 mg per tablet Take 1 tablet by mouth 2 (two) times a day Active estrogens, conjugated, (Premarin) vaginal cream LEILANI 1 GRAM VAGINALLY 2 TIMES A WK 8 Active levothyroxine (SYNTHROID) 50 mcg tablet TAKE 1 TABLET(50 MCG) BY MOUTH 5 TIMES A WEEK 10/14/202 4 Active rizatriptan (MAXALT) 10 mg tablet TAKE 1 TABLET BY MOUTH NEEDED FOR MIGRAINE; MAY REPEAT IN 2 HOURS IF NEEDED; MAX 2 TABLETS IN 24 HOURS 4 Active Active Problems No known active problems Social History Tobacco Use Types Packs/Day Years Used Date Smoking Tobacco: Never Assessed Comments Unknown Sex and Gender Information Value Date Recorded Sex Assigned at Not on file Legal Sex Female 12:44 AM WHEEL INSTALLER Gender Identity Not on file Sexual Orientation Not on file Last Filed Vital Signs Vital Sign Reading Time Taken Comments Blood Pressure 108/66 05/04/2024 10:25 AM WHEEL INSTALLER Pulse 76 05/04/2024 10:25 AM WHEEL INSTALLER Temperature 36.6 ??C (97.8 ??F) 05/04/2024 10:[address] Respiratory Rate 18 05/04/2024 10:25 AM WHEEL INSTALLER Oxygen Saturation 97% 05/04/2024 10:25 AM WHEEL INSTALLER Inhaled Oxygen Concentration - - Weight 57 kg (125 lb 11.2 oz) 05/04/2024 10:25 A M WHEEL INSTALLER Height 154.9 cm (5' 1 ) 05/04/2024 10:25 AM WHEEL INSTALLER Body Mass Index 23.75 05/04/2024 10:25 AM WHEEL INSTALLER Plan of Treatment Not on file Insurance [employer] Care Teams Back Digger Operator Relationship Specialty Start Date End Date Joshua Murphy MD PCP - General Internal Medicine 03/03/19
--- OUTSIDE RECORDS SUMMARY | 2024-07-22 11:07 | XMS_ITS | Encounter Summary ---
Author Organization [facility] Address formerly [facility] [place] [address] [place] [address] Care Team Providers Care Wood Machinist Apprentice Name Role Phone Yasmany Murphy Primary Care Provider [phone] Joshua Murphy MD Unavailable [phone] Joshua Murphy MD Primary Care Provide r Joshua Murphy MD Unavailable [phone]- [phone] Encounter Details Date Type Department Care Team (Late st Contact Info) Description 08/15/2016 Abstract [facility] Clinics Conversion Md, Generic Conversion, Social History Tobacco Use Types Packs/Day Years [...] st Contact Info) Description 08/05/2024 1:00 PM GEOSPATIAL INTELLIGENCE ANALYST Office Visit [facility] [address] [place] [address] [place] [address] [place] [address] documented as of this encounter Visit Diagnoses Not on filedocumented in this encounter Care Teams Wood Machinist Apprentice Relationship Specialty Start Date End Date Yasmany Murphy FNP [address] [place] [address] PCP - General NURSE PRACTITIONER 09/03/18 02/08/19 [place] [address] [place] [address] PCP - Med Group - [facility] Attributed Provider 08/28/18 08/29/19 [place] [address] [place] [address] PCP - General INTERNAL MEDICINE 02/09/19 [place] [address] [place] [address] PCP - Med Group - [facility] Attributed Provider 10/29/19 06/30/20 documented as of this encounter
--- OUTSIDE RECORDS SUMMARY | 2024-07-22 11:07 | XMS_ITS | Clinical Summary ---
Author Organization [facility] Address [address] [place] [address] Phone Care Team Providers Care Bellhop Captain Name Role Phone Unavailable Primary Care Provider Unavailabl e Allergies Active Allergy Reactions Criticality Noted Date Comments Sulfamethoxazole-Trimethoprim Unknown 2020 Medications denosumab (Prolia) 60 mg/mL Syringe Inject 1 mL (60 mg) by subcutaneous injection every 6 months 1 mL 05/08/2022 2:02 PM PRESCHOOL ASSOCIATE TEACHER 2 Active denosumab (Prolia) 60 mg/mL Syringe Inject 1 mL (60 mg) by subcutaneous injection every 6 months 1 mL 1 01/01/2023 5:02 PM CDT 3 Active Social History Tobacco Use Types Packs/Day Years Used Date Smoking Tobacco: Never Assessed Comments Unknown Sex and Gender Information Value Date Recorded Sex Assigned at Not on file Legal Sex Female 11:33 AM CDT Gender Identity Not on file Sexual Orientation Not on file Plan of Treatment Health Maintenance Due Date Last Done Comments DTAP/TDAP/TD VACCINES (1 - Tdap) 1961 PNEUMOCOCCAL VACCINE 65+ YEARS (1 of 1 - PCV) 08/14/18 93 ZOSTER VACCINE (1 of 2) 1992 OSTEOPOROSIS SCREENING 2007 RSV VACCINE (60+ or ) (1 - 1-dose 75+ series) 2017 INFLUENZA VACCINE (#1) 2024 Insurance RX [employer] RX Member Subscriber Plan / Payer (Ef fective for All Dates) Name:Edwige Whiting Relation to Subscriber:Self Name:Edwige Whiting Payer ID:Not on file Group ID:[id number] Type:RX Medicare Part D Address: [facility] SOLID WASTE TECHNICIAN, [facility] Commercial RX AETNA Medicare Part D
--- OUTSIDE RECORDS SUMMARY | 2024-07-22 11:07 | XMS_ITS | Patient Health Summary ---
Author Organization [facility] Address [address] [facility] [place] [address] Care Team Providers Care Clam Dredge Boat Captain Name Role Phone Joshua Murphy MD Primary Care Provide r Note from [facility],non-owned Affiliates and Associated Physician Practices is amultiple site organization consisting of ambulatory clinics and hospital sitesin [place], [place], [place] and [place]. This disclosure is being madepursuant to the Care Everywhere program and may not contain all information available regarding this patient. Last updated 18.[facility] [place] Social History Tobacco Use Types Packs/Day Years Used Date Smoking Tobacco: Never Assessed Sex and Gender Information Value Date Recorded Sex Assigned at Not on file Gender Identity Not on file Sexual Orientation Not on file Last Filed Vital Signs Vital Sign Reading Time Taken Comments Blood Pressure 123/75 01/12/2014 7:13 AM CDT Pulse 73 01/12/2014 7:13 AM CDT Temperature - - Respiratory Rate - - Oxygen Saturation 96% 01/12/2014 7:13 AM CDT Inhaled Oxygen Concentration - - Weight 64 kg (141 lb) 12/08/2013 2:09 PM CDT Height 157.5 cm (5' 2 ) 12/08/2013 2:09 PM CDT Body Mass Index 25.79 12/08/2013 2:09 PM CDT Procedures * DERMATOPATH TECHNICAL REPORT(Performed 06/10/2018) * DERMATOPATH TECHNICAL REPORT(Performed 04/10/2018) * DERMATOPATHOLOGY(Performed 10/10/2017) * DERMATOPATHOLOGY(Performed 05/13/2017) * DERMATOPATHOLOGY(Performed 11/12/2016) * DERMATOPATHOLOGY(Performed 11/08/2013) Results * DERMATOPATH TECHNICAL REPORT (06/10/2018 12:00 AM [facility]) Only the most recent of2 resultswithin the time period is included. Case Report Dermatopathology Report ? Case: [id number] ? Authorizing Provider: ??Felicia Huffman MD ? Collected: ? 06/10/2018 12:00 AM ? Pathologist: ? Braden Balbuena MD ? Received: ?06/11/2018 06:53 AM ? Specimen: ?Skin, right mid FA ? 11:25 AM [facility] DERMATOPATHOLOGY LABORATORY Clinical History R/O BCC, biopsy proven. Check margins. 11:25 AM [facility] DERMATOPATHOLOGY LABORATORY Gross Description Specimen A: Received is one formalin filled container labeled with the patient's name and designated right mid FA. The specimen consists of a non-oriented ellipse of skin measuring [id number]. The epidermal surface consists of a centrally located 5x5mm previous biopsy site. The margin is inked green. The 12 o'clock and 6 o'clock tips are submitted in cassette 1. The remainder of the ellipse is serially sectioned and submitted in cassettes 2-3. Jar 0. [facility] Dermatopathology Laboratory performed the technical component only. 11:25 AM [facility] DERMATOPATHOLOGY LABORATORY Embedded Images 11:25 AM [facility] DERMATOPATHOLOGY LABORATORY DISCLAIMER An external and internal positive and negative controls are appropriate for the histochemical, immunohistochemical and immunofluorescence stain(s) in this case (if any), except where stated explicitly. The performance characteristics of the stain(s) cited in this report were developed and its performance characteristic determined by the Dermatopathology Laboratory at [facility]. These tests need not be, and therefore are not, approved by the [place] Food and Drug Administration. The tests are used for clinical purposes. 8 11:25 AM BUNK ASSEMBLER DERMATOPATHOLOGY LABORATORY Pathology/Cytolog y TISSUE SPECIMEN FROM SKIN / Unknown 06/10/2018 06/11/2018 6:53 AM BUNK ASSEMBLER Felicia Huffman MD LAB - PATHOLOGY/CYT OLOGY ORDERABLES DERMATOPATHOLOGY LABORATORY [facility] - Department of Dermatology [address] [place] [address] [address] [phone] * DERMATOPATHOLOGY (10/10/2017 12:00 AM CDT) Only the most recent of4 resultswithin the time period is included. Case Report Dermatopathology Report ? Case: [id number] ? Authorizing Provider: ??Felicia Huffman MD ? Collected: ? 10/10/2017 12:00 AM ? Ordering Location: ? [facility] ?Received: ?10/13/2017 07:31 AM ? Dermatology ? Pathologist: ? Braden Balbuena MD ? Specimen: ?Skin, post. neck ? 1:14 PM CDT DERMATOPATHOLOGY LABORATORY Final Diagnosis Specimen A. SKIN, post. neck: DERMAL SCAR - RESIDUAL BASAL CELL CARCINOMA NOT IDENTIFIED (L90.5) 1:14 PM CDT DERMATOPATHOLOGY LABORATORY Clinical History Bx proven BCC. Check margins. Previous Bx: [id number]. 1:14 PM CDT DERMATOPATHOLOGY LABORATORY Gross Description Specimen: A: Received is one formalin filled container labeled with the patient's name and designated post. neck. The specimen consists of a non-oriented ellipse of skin measuring [id number]. The epidermal surface is unremarkable. The margin is inked green. The 12 o'clock and 6 o'clock tips are submitted in cassette 1. The remainder of the ellipse is serially sectioned and submitted in cassettes 2-3. Jar 0. 1:14 PM CDT DERMATOPATHOLOGY LABORATORY Microscopic Description Specimen A. SKIN, post. neck: There are fibroblasts and collagen bundles oriented parallel to the skin surface. There are elongated blood vessels, some of which are oriented perpendicular to the skin surface. No basal cell carcinoma is identified. 1:14 PM CDT DERMATOPATHOLOGY LABORATORY Disclaimer An external and internal positive and negative controls are appropriate for the histochemical, immunohistochemical and immunofluorescence stain(s) in this case (if any), except where stated explicitly. The performance characteristics of the stain(s) cited in this report were developed and its performance characteristic determined by the Dermatopathology Laboratory at [facility]. These tests need not be, and therefore are not, approved by the [place] Food and Drug Administration. The tests are used for clinical purposes. Billing Codes Specimen Charges Stain Charges 44253 1 8 1:14 PM CDT DERMATOPATHOLOGY LABORATORY Embedded Images 8 1:14 PM CDT DERMATOPATHOLOGY LABORATORY Pathology/Cytolog y TISSUE SPECIMEN FROM SKIN / Unknown 10/10/2017 10/13/2017 7:31 AM CDT Felicia Huffman MD LAB - PATHOLOGY/CYT OLOGY ORDERABLES DERMATOPATHOLOGY LABORATORY [facility] - Department of Dermatology [address] [place] [address], 5th Floor Lab [address] [phone] Care Teams Clam Dredge Boat Captain Relationship Specialty Start Date End Date Joshua Murphy MD [address] [place] [address] PCP - General 10/10/17
--- OUTSIDE RECORDS SUMMARY | 2024-07-22 11:07 | XMS_ITS | Encounter Summary ---
Author Organization [facility] Address [facility] [place] [address] [place] [address] Care Team Providers Care Payment Manager Name Role Phone Yasmany Murphy Primary Care Provider [phone] Joshua Murphy MD Unavailable [phone]- [phone] Joshua Murphy MD Primary Care Provide r Joshua Murphy MD Unavailable +[phone]- [phone] Encounter Details Date Type Department Care Team (Late st Contact Info) Description 06/26/2012 Abstract [facility] Clinics Conversion Md, Generic Conversion, Social History [...] st Contact Info) Description 08/05/2024 1:00 PM CALENDER WORKER HELPER Office Visit [facility] [address] [place] [address] [place] [address] [place] [address] documented as of this encounter Visit Diagnoses Not on filedocumented in this encounter Care Teams Payment Manager Relationship Specialty Start Date End Date Yasmany Murphy FNP [address] [place] [address] PCP - General NURSE PRACTITIONER 09/03/18 02/08/19 [place] [address] [place] [address] PCP - Med Group - [facility] Attributed Provider 08/28/18 08/29/19 [place] [address] [place] [address] PCP - General INTERNAL MEDICINE 02/09/19 [place] [address] [place] [address] PCP - Med Group - [facility] Attributed Provider 10/29/19 06/30/20 documented as of this encounter
--- OUTSIDE RECORDS SUMMARY | 2024-07-22 11:07 | XMS_ITS | Clinical Summary ---
Author Organization [facility] Address [address] [place] [address] Care Team Providers Care Antenna Engineer Name Role Phone Joshua Murphy MD Primary Care Provider Allergies Active Allergy Reactions Criticality Noted Date [...] MCG) BY MOUTH 5 TIMES A WEEK 4 Active rizatriptan (MAXALT) 10 mg tablet TAKE 1 TABLET BY MOUTH NEEDED FOR MIGRAINE; MAY REPEAT IN 2 HOURS IF NEEDED; MAX 2 TABLETS IN 24 HOURS 4 Active Active Problems No known active problems Encounters Date Type Department Care Team Description 05/04/2024 10:15 AM LOANS OFFICER Office Visit [facility] Convenient Care at [address] [address] Ashley Henriquez PA Dizziness (Primary Dx) from Last 3 Months Social History Tobacco Use Types Packs/Day Years Used Date Smoking Tobacco: Never Assessed Comments Unknown Sex and Gender Information Value Date Recorded Sex Assigned at Not on file Legal Sex Female 12:44 AM LOANS OFFICER Gender Identity Not on file Sexual Orientation Not on file Obstetrics History Last Filed Vital Signs Vital Sign Reading Time Taken Comments Blood Pressure 108/66 05/04/2024 10:25 AM LOANS OFFICER Pulse 76 05/04/2024 10:25 AM LOANS OFFICER Temperature 36.6 ??C (97.8 ??F) 05/04/2024 10:[address] Respiratory Rate 18 05/04/2024 10:25 AM LOANS OFFICER Oxygen Saturation 97% 05/04/2024 10:25 AM LOANS OFFICER Inhaled Oxygen Concentration - - Weight 57 kg (125 lb 11.2 oz) 05/04/2024 10:25 A M LOANS OFFICER Height 154.9 cm (5' 1 ) 05/04/2024 10:25 AM LOANS OFFICER Body Mass Index 23.75 05/04/2024 10:25 AM LOANS OFFICER Plan of Treatment Health Maintenance Due Date Last Done Comments Depression Screening 1942 Fall Risk Assessment 1940 Hepatitis B Screening 1960 Zoster Vaccine (2 of 3) 08/25/2005 06/30/2005 Well Visit 65+ 2007 DTaP/Tdap/Td Vaccine (2 - Td or Tdap) 05/30/2020 05/30/2010 Osteoporosis Screening-Bone Density Scan 04/29/2026 04/29/2024 Pneumococcal vaccine 65+ Completed 04/16/2018, 1206/2009 Covid-19 Vaccine Completed 04/01/2024, , 04/07/2022, Additional history exists Influenza Vaccine Completed 04/01/2024, , 04/07/2022, Additional history exists Insurance [place] [address] [facility] MEDICARE Care Teams Antenna Engineer Relationship Specialty Start Date End Date Joshua Murphy MD PCP - General Internal Medicine 03/03/19
--- OUTSIDE RECORDS SUMMARY | 2024-07-22 11:07 | XMS_ITS | Referral Summary ---
Author Organization [facility] Address [address] [place] [address] Care Team Providers Care Mud Analysis Well Logging Operator Name Role Phone Joshua Murphy MD Primary Care Provide r Source Comments [facility],non-[facility] Affiliates and Associated Physician Practices is amultiple site organization consisting of ambulatory clinics and hospital sitesin [place], [place], [place] and [place]. This disclosure is being madepursuant to the Care Everywhere program and may not contain all information available regarding this patient. Last updated 18.[facility] [employer] Social History Tobacco Use Types Packs/Day Years [...] Mass Index 25.79 12/08/2013 2:09 PM CDT Plan of Treatment Not on file Care Teams Mud Analysis Well Logging Operator Relationship Specialty Start Date End Date Joshua Murphy MD [address] [place] [address] PCP - General 10/10/17
--- OUTSIDE RECORDS SUMMARY | 2024-07-22 11:07 | XMS_ITS | Clinical Summary ---
Author Organization [facility] Address [address] [place] [address] Care Team Providers Care Manufacturing Systems Engineer Name Role Phone Joshua Murphy MD Primary Care Provide r Source Comments [facility],non-owned Affiliates and Associated Physician Practices is amultiple site organization consisting of ambulatory clinics and hospital sitesin [place], [place], [place] and [place]. This disclosure is being madepursuant to the Care Everywhere program and may not contain all information available regarding this patient. Last updated 18.[facility] [employer] Social History Tobacco Use Types Packs/Day Years [...] 12/08/2013 2:09 PM CDT Plan of Treatment Health Maintenance Due Date Last Done Comments BONE DENSITY TESTING 1942 DTAP/TDAP/TD VACCINES (1 - Tdap) 1961 PNEUMOCOCCAL VACCINE 50+ (1 of 1 - PCV) 1992 ZOSTER VACCINE (1 of 2) 1992 Respiratory Syncytial Virus (RSV) Vaccine Pt: or over 60 yrs (1 - 1-dose 75+ series) 2017 COVID-19 VACCINE (2023-2 5 season) 2024 INFLUENZA VACCINE (#1) 2024 DEPRESSION SCREENING 06/30/2024 MEDICARE AWV ? CALENDAR YEAR 2024 HEPATITIS B VACCINE Aged Out No longe r eligible based on patient's age to complete this topic HIB VACCINE Aged Out No longer eligi ble based on patient's age to complete this topic HPV VACCINE Aged Out No longer eligi ble based on patient's age to complete this topic MENINGOCOCCAL (Group B) VACCINE Aged Out No longer eligible based on patient's age to complete this topic MENINGOCOCCAL VACCINE Aged Out No crystal bandar eligible based on patient's age to complete this topic Care Teams Manufacturing Systems Engineer Relationship Specialty Start Date End Date Joshua Murphy MD [address] [place] [address] PCP - General 10/10/17
== END 2024-07-19 15:12 | disposition home or self-care (01) ==
PROVIDERS: PCP Pediatrics; Visit Provider Orthopaedic Surgery
PROC: (CPT 25575; principal; 2024-07-19 12:00)
DX: S52.552A Other extraarticular fracture of lower end of left radius, initial encounter for closed fracture (principal); K21.9 Gastro-esophageal reflux disease without esophagitis; F41.9 Anxiety disorder, unspecified; M85.88 Other specified disorders of bone density and structure, other site; R35.0 Frequency of micturition; M17.10 Unilateral primary osteoarthritis, unspecified knee; W00.0XXA Fall on same level due to ice and snow, initial encounter; Z79.1 Long term (current) use of non-steroidal anti-inflammatories (NSAID); Z79.891 Long term (current) use of opiate analgesic; Z98.890 Other specified postprocedural states; Z98.1 Arthrodesis status; Z80.42 Family history of malignant neoplasm of prostate; Z80.1 Family history of malignant neoplasm of trachea, bronchus and lung; Z82.49 Family history of ischemic heart disease and other diseases of the circulatory system
CPT/HCPCS: 25607; 99199; A9270; C1713; C1769; J0690; J1100; J1885; J2003; J2405; J2704; J3010; J7120

== ENCOUNTER 2024-09-13 12:05 | Outpatient (CLI) | payer MEDICARE, SELFPAY ==
[2024-09-13 14:18] LABS: Basophils Percent Auto 0.7 % (0.2-1.2); Eosinophils Percent Auto 0.9 % (0-4.4); Hematocrit 38.6 % (37.0-47.0); Hemoglobin 12.6 g/dL (12.0-15.0); Immature Granulocyte Absolute 0.02 K/mm3 (0.00-0.031); Immature Granulocyte Percent A 0.4 % (0-0.5); Lymphocytes Absolute Auto 1.02 K/mm3 (0.9-3.2); Lymphocytes Percent Auto 22.7 % (18.3-44.2); Mean Corpuscular HGB Conc 32.6 g/dl (32-36); Mean Corpuscular Hemoglobin 32.1 pg (26-34); Mean Corpuscular Volume 98.5 fl (80-100); Mean Platelet Volume 11.3 fl (7.4-10.4); Monocytes Absolute Auto 0.4 K/mm3 (0.1-0.6); Monocytes Percent Auto 9.8 % (2.6-8.5); Neutrophils Absolute Auto 2.9 K/mm3 (1.3-6.7); Neutrophils Percent Auto 65.5 % (45.5-73.1); Platelet Count Result 167 k/mm3 (150-375); Red Blood Count 3.92 M/mm3 (4.2-5.4); Red Cell Distribution Width 12.4 % (11.5-14.5); White Blood Count 4.5 K/mm3 (4.5-10.0)
[2024-09-13 14:31] LABS: Alanine Aminotransferase 26 U/L (6-35); Albumin Level 3.9 g/dL (3.5-5.1); Alkaline Phosphatase 102 U/L (38-126); Anion Gap 6 mmol/L (4-12); Aspartate Amino Transferase 34 U/L (14-36); Bilirubin,Total 0.5 mg/dL (0.2-1.3); Blood Urea Nitrogen 20 mg/dL (7-17); Calcium 9.7 mg/dL (8.4-10.2); Carbon Dioxide 31 mmol/L (22-30); Chloride 100 mmol/L (98-107); Cholesterol 151 mg/dL (0-200); Estimated Glomerular Filt Rate > 60; Glucose 114 mg/dL (65-110); HDL Direct 76 mg/dL; Potassium 4.2 mmol/L (3.4-5.0); Sodium 137 mmol/L (137-145); Triglycerides 68 mg/dL (<150)
--- OUTSIDE RECORDS SUMMARY | 2024-09-13 14:33 | XMS_ITS | Referral Summary ---
Author Organization [facility] Address [address] [place] [address] Care Team Providers Care Grades 1 6 Tutor Name Role Phone Joshua Murphy MD Primary [...] on file Legal Sex Female 12:44 AM INDUSTRIAL PHARMACIST Gender Identity Not on file Sexual Orientation Not on file Last Filed Vital Signs Vital Sign Reading Time Taken Comments Blood Pressure 108/66 05/04/2024 10:25 AM INDUSTRIAL PHARMACIST Pulse 76 05/04/2024 10:25 AM INDUSTRIAL PHARMACIST Temperature 36.6 C (97.8 F) 05/04/2024 10:25 AM INDUSTRIAL PHARMACIST Respiratory Rate 18 05/04/2024 10:25 AM INDUSTRIAL PHARMACIST Oxygen Saturation 97% 05/04/2024 10:25 AM INDUSTRIAL PHARMACIST Inhaled Oxygen Concentration - - Weight 57 kg (125 lb 11.2 oz) 05/04/2024 10:25 A M INDUSTRIAL PHARMACIST Height 154.9 cm (5' 1 ) 05/04/2024 10:25 AM INDUSTRIAL PHARMACIST Body Mass Index 23.75 05/04/2024 10:25 AM INDUSTRIAL PHARMACIST Plan of Treatment Not on file Insurance [facility] MEDICARE Address: [facility] [id number] [place] [phone] [employer] MEDICARE Care Teams Grades 1 6 Tutor Relationship Specialty Start Date End Date Joshua Murphy MD PCP - General Internal Medicine 03/03/19
--- OUTSIDE RECORDS SUMMARY | 2024-09-13 14:33 | XMS_ITS | Clinical Summary ---
Author Organization [facility] Address [address] [place] [address] Care Team Providers Care President Commercial Bank Name Role Phone Joshua Murphy MD Primary [...] on file Legal Sex Female 12:44 AM CAN FILLING MACHINE OPERATOR Gender Identity Not on file Sexual Orientation Not on file Obstetrics History Last Filed Vital Signs Vital Sign Reading Time Taken Comments Blood Pressure 108/66 05/04/2024 10:25 AM CAN FILLING MACHINE OPERATOR Pulse 76 05/04/2024 10:25 AM CAN FILLING MACHINE OPERATOR Temperature 36.6 C (97.8 F) 05/04/2024 10:25 AM CAN FILLING MACHINE OPERATOR Respiratory Rate 18 05/04/2024 10:25 AM CAN FILLING MACHINE OPERATOR Oxygen Saturation 97% 05/04/2024 10:25 AM CAN FILLING MACHINE OPERATOR Inhaled Oxygen Concentration - - Weight 57 kg (125 lb 11.2 oz) 05/04/2024 10:25 A M CAN FILLING MACHINE OPERATOR Height 154.9 cm (5' 1 ) 05/04/2024 10:25 AM CAN FILLING MACHINE OPERATOR Body Mass Index 23.75 05/04/2024 10:25 AM CAN FILLING MACHINE OPERATOR Plan of Treatment Health Maintenance Due Date Last Done Comments Depression Screening 1942 Fall Risk Assessment 1942 Hepatitis B Screening 1960 Zoster Vaccine (2 of 3) 08/25/2005 06/30/2005 Well Visit 65+ 2007 DTaP/Tdap/Td Vaccine (2 - Td or Tdap) 05/30/2020 05/30/2010 Covid-19 Vaccine (2023-2 5 season) 2024 04/01/2024, 03/18/2023, 04/07/2022, Additional history exists Osteoporosis Screening-Bone Density Scan 04/29/2026 04/29/2024 Pneumococcal vaccine 65+ Completed 04/16/2018, 1206/2009 Influenza Vaccine Completed 04/01/2024, , 04/07/2022, Additional history exists Insurance MEDICARE [facility] MEDIC[facility] Address: [address] [address] [place] [address] AETNA MEDICARE [facility] MED[facility] Address: [address] [place] [address] Care Teams President Commercial Bank Relationship Specialty Start Date End Date Joshua Murphy MD PCP - General Internal Medicine 03/03/19
--- OUTSIDE RECORDS SUMMARY | 2024-09-13 14:33 | XMS_ITS | Clinical Summary ---
Author Organization [facility] Address [address] [facility] [place] [address] Phone Care Team Providers Care Balance Staff Inspector Name Role Phone Unavailable Primary Care Provider Unavailabl e Allergies Active Allergy Reactions Criticality Noted Date Comments Sulfamethoxazole-Trimethoprim Unknown 2020 Medications denosumab (Prolia) 60 mg/mL Syringe Inject 1 mL (60 mg) by subcutaneous injection every 6 months 1 mL 05/08/2022 2:02 PM CHIEF NURSE ANESTHETIST 2 Active denosumab (Prolia) 60 mg/mL Syringe [...] (1 - Tdap) 1961 PNEUMOCOCCAL VACCINE 50+ YEARS (1 of 1 - PCV) 08/14/18 [...] Part D Address: [facility] DEMAND PLANNING ANALYST, [facility] [employer] AET[employer] Medicare Part D
--- OUTSIDE RECORDS SUMMARY | 2024-09-13 14:33 | XMS_ITS | Patient Health Summary ---
Author Organization [facility] Address [address] [place] [address] Care Team Providers Care Tin Plater Name Role Phone Joshua Murphy MD Primary Care Provide r Note from [facility],non-owned Affiliates and Associated Physician Practices is amultiple site organization consisting of ambulatory clinics and hospital sitesin [place], [place], [place] and [place]. This disclosure is being madepursuant to the Care Everywhere program and may not contain all information available regarding this patient. Last updated 18.[facility] [employer] Social History Tobacco Use Types Packs/Day Years [...] * DERMATOPATH TECHNICAL REPORT (06/10/2018 12:00 AM TRASH COLLECTOR) Only the most recent of2 resultswithin the time period is included. Case Report Dermatopathology Report Case: [id number] Authorizing Provider: Felicia Huffman MD Collected: 06/10/2018 12:00 AM Pathologist: Braden Balbuena MD Received: 06/11/2018 06:53 AM Specimen: Skin, right mid FA 8 11:25 AM [facility] DERMATOPATHOLOGY LABORATORY Clinical History R/O BCC, biopsy proven. Check margins. 11:25 AM [facility] DERMATOPATHOLOGY LABORATORY Gross Description Specimen A: Received is one formalin filled container labeled with the patient's name and designated right mid FA. The specimen consists of a non-oriented ellipse of skin measuring [id number]. The epidermal surface consists of a centrally located 5x5mm previous biopsy site. The margin is inked green. The 12 o'clock and 6 o'clock tips are submitted in cassette 1. The remainder of the ellipse is serially sectioned and submitted in cassettes 2-3. Jar 0. [facility] Dermatopathology Laboratory performed the technical component only. 8 11:25 AM [facility] DERMATOPATHOLOGY LABORATORY Embedded Images 11:25 AM [facility] DERMATOPATHOLOGY LABORATORY DISCLAIMER An external and internal positive and negative controls are appropriate for the histochemical, immunohistochemical and immunofluorescence stain(s) in this case (if any), except where stated explicitly. The performance characteristics of the stain(s) cited in this report were developed and its performance characteristic determined by the Dermatopathology Laboratory at [facility]. These tests need not be, and therefore are not, approved by the [place] Food and Drug Administration. The tests are used for clinical purposes. 8 11:25 AM [facility] DERMATOPATHOLOGY LABORATORY Pathology/Cytolog y TISSUE SPECIMEN FROM SKIN / Unknown 06/10/2018 06/11/2018 6:53 AM TRASH COLLECTOR Felicia Huffman MD LAB - PATHOLOGY/CYT OLOGY ORDERABLES DERMATOPATHOLOGY LABORATORY [facility] - Department of Dermatology [address] [facility], 5th Floor Lab B [address] [phone] * DERMATOPATHOLOGY (10/10/2017 12:00 AM CDT) Only the most recent of4 resultswithin the time period is included. Case Report Dermatopathology Report Case: [id number] Authorizing Provider: Felicia Huffman MD Collected: 10/10/2017 12:00 AM Ordering Location: [facility] Received: 10/13/2017 07:31 AM Dermatology Pathologist: Braden Balbuena MD Specimen: Skin, post. neck 1:14 PM CDT DERMATOPATHOLOGY LABORATORY Final Diagnosis Specimen A. SKIN, post. neck: DERMAL SCAR - RESIDUAL BASAL CELL CARCINOMA NOT IDENTIFIED (L90.5) 1:14 PM CDT DERMATOPATHOLOGY LABORATORY Clinical History Bx proven BCC. Check margins. Previous Bx: [id number]. 1:14 PM CDT DERMATOPATHOLOGY LABORATORY Gross Description Specimen: A: Received is one formalin filled container labeled with the patient's name and designated post. neck. The specimen consists of a non-oriented ellipse of skin measuring [id number]. The epidermal surface is unremarkable. The margin [...] characteristic determined by the Dermatopathology Laboratory at [facility]. These tests need not be, and therefore are not, approved by the [place] Food and Drug Administration. The tests are used for clinical purposes. Billing Codes Specimen Charges Stain Charges 58361 1 8 1:14 PM CDT DERMATOPATHOLOGY LABORATORY Embedded Images 8 1:14 PM CDT DERMATOPATHOLOGY LABORATORY Pathology/Cytolog y TISSUE SPECIMEN FROM SKIN / Unknown 10/10/2017 10/13/2017 7:31 AM CDT Felicia Huffman MD LAB - PATHOLOGY/CYT OLOGY ORDERABLES DERMATOPATHOLOGY LABORATORY [facility] - Department of Dermatology [address] [place] [address] [address] [phone] Care Teams Tin Plater Relationship Specialty Start Date End Date Joshua Murphy MD [address] [place] [address] PCP - General 10/10/17
--- OUTSIDE RECORDS SUMMARY | 2024-09-13 14:33 | XMS_ITS | Clinical Summary ---
Author Organization [facility] Address [address] [place] [address] Care Team Providers Care Foxer Name Role Phone Joshua Murphy MD Primary Care Provide r Source Comments [facility],non-owned Affiliates and Associated Physician Practices is amultiple site organization consisting of ambulatory clinics and hospital sitesin [place], [place], [place] and [place]. This disclosure is being madepursuant to the Care Everywhere program and may not contain all information available regarding this patient. Last updated 18.[facility] [employer] Social History Tobacco Use Types Packs/Day Years [...] (#1) 2024 DEPRESSION SCREENING 06/30/2024 MEDICARE AWV CALENDAR YEAR 2024 HEPATITIS B VACCINE Aged Out No longe r eligible based on patient's age to complete this topic HIB VACCINE Aged Out No longer eligi ble based on patient's age to complete this topic HPV VACCINE Aged Out No longer eligi ble based on patient's age to complete this topic MENINGOCOCCAL (Group B) VACC INE SHARED DECISION-MAKING Aged Out No longer eligibl e based on patient's age to complete this topic MENINGOCOCCAL GROUPS A/C/Y/W VACCINE Aged Out No longer eligible b ased on patient's age to complete this topic Care Teams Foxer Relationship Specialty Start Date End Date Joshua Murphy MD [facility] [place], [place] [id number] PCP - General 10/10/17
--- OUTSIDE RECORDS SUMMARY | 2024-09-13 14:33 | XMS_ITS | Encounter Summary ---
Author Organization [facility] Address [facility] [place] [address] Care Team Providers Care Fish Cleaner Name Role Phone Yasmany Murphy Primary Care Provider [phone] Joshua Murphy MD Unavailable [phone] Joshua Murphy MD Primary Care Provide r Joshua Murphy MD Unavailable [phone]- [phone] Encounter Details Date Type Department Care Team (Late st Contact Info) Description 08/15/2016 Abstract [facility] Conversion , Generic ConversionMD Social History Tobacco Use Types Packs/Day Years [...] Care Team (Late st Contact Info) Description 09/28/2024 1:00 PM CDT Office Visit [facility] [address] [place] [phone] [place] [address] [place] [address] documented as of this encounter Visit Diagnoses Not on filedocumented in this encounter Care Teams Fish Cleaner Relationship Specialty Start Date End Date Yasmany Murphy FNP [address] [place] [address] PCP - General NURSE PRACTITIONER 09/03/18 02/08/19 [place] [address] [place] [address] PCP - Med Group - [facility] Attributed Provider 08/28/18 08/29/19 [place] [address] [place] [address] PCP - General INTERNAL MEDICINE 02/09/19 [place] [address] [place] [address] PCP - Med Group - [facility] Attributed Provider 10/29/19 06/30/20 documented as of this encounter
--- OUTSIDE RECORDS SUMMARY | 2024-09-13 14:33 | XMS_ITS | Encounter Summary ---
Author Organization [facility] Address [address] [facility] [place] [address] Care Team Providers Care Technology Officer Name Role Phone Joshua Murphy MD Primary Care Provide r Encounter Details Date Type Department Care Team (Late st Contact Info) Description 04/13/2018 Lab Requisition [facility] Care DermPath Lab [address] [facility] [place] [address] Felicia Huffman MD [address] [facility] [address] [place] [address] Social History Tobacco Use Types Packs/Day Years [...] 12:00 AM CDT) Case Report Dermatopathology Report Case: [id number] Authorizing Provider: Felicia Huffman MD Collected: 04/10/2018 12:00 AM Pathologist: Sahra Duarte MD Received: 04/13/2018 06:46 AM Specimen: Skin, right mid forearm 10:59 AM CDT DERMATOPATHOLOGY LABORATORY Clinical History R/O BCC, irritated, non-healing. Check margins. 8 10:59 AM CDT DERMATOPATHOLOGY LABORATORY Gross Description Specimen A: Received is one formalin filled container labeled with the patient's name and designated right mid forearm. The specimen consists of a shave measuring [id number]. The margin is inked green. Jar 0. [facility] Dermatopathology Laboratory performed the technical component only. 10:59 AM CDT DERMATOPATHOLOGY LABORATORY Embedded Images 10:59 AM CDT DERMATOPATHOLOGY LABORATORY DISCLAIMER An external and internal positive and negative controls are appropriate for the histochemical, immunohistochemical and immunofluorescence stain(s) in this case (if any), except where stated explicitly. The performance characteristics of the stain(s) cited in this report were developed and its performance characteristic determined by the Dermatopathology Laboratory at [facility]. These tests need not be, and therefore are not, approved by the [place] Food and Drug Administration. The tests are used for clinical purposes. 10:59 AM T DERMATOPATHOLOGY LABORATORY Pathology/Cytolog y TISSUE SPECIMEN FROM SKIN / Unknown 04/10/2018 04/13/2018 6:46 AM CDT Felicia Huffman MD LAB - PATHOLOGY/CYT OLOGY ORDERABLES DERMATOPATHOLOGY LABORATORY [facility] - Department of Dermatology [address] [place] [address], 5th Floor Lab [address] [phone] documented in this encounter Visit Diagnoses Not on filedocumented in this encounter Care Teams Technology Officer Relationship Specialty Start Date End Date Joshua Murphy MD [address] [place] [address] PCP - General 10/10/17 documented as of this encounter
--- OUTSIDE RECORDS SUMMARY | 2024-09-13 14:33 | XMS_ITS | Encounter Summary ---
Author Organization [facility] Address [address] [facility] [place] [address] Care Team Providers Care Farm Product Purchaser Name Role Phone Joshua Murphy MD Primary Care Provide r Encounter Details Date Type Department Care Team (Late st Contact Info) Description 06/11/2018 Lab Requisition [facility] Care DermPath Lab [address] [facility] [place] [phone] Felicia Huffman MD [address] [facility] [address] [place] [address] Social History Tobacco Use Types Packs/Day Years [...] DERMATOPATH TECHNICAL REPORT Routine 06/10/2018 12:00 AM CHILDCARE ATTENDANT documented in this encounter Results * DERMATOPATH TECHNICAL REPORT (06/10/2018 12:00 AM CHILDCARE ATTENDANT) Case Report Dermatopathology Report Case: [id number] Authorizing Provider: Felicia Huffman MD Collected: 06/10/2018 12:00 AM Pathologist: Braden Balbuena MD Received: 06/11/2018 06:53 AM Specimen: Skin, right mid FA 8 11:25 AM CHILDCARE ATTENDANT DERMATOPATHOLOGY LABORATORY Clinical History R/O BCC, biopsy proven. Check margins. 8 11:25 AM CHILDCARE ATTENDANT DERMATOPATHOLOGY LABORATORY Gross Description Specimen A: Received is one formalin filled container labeled with the patient's name and designated right mid FA. The specimen consists of a non-oriented ellipse of skin measuring [id number]. The epidermal surface consists of a centrally located 5x5mm previous biopsy site. The margin is inked green. The 12 o'clock and 6 o'clock tips are submitted in cassette 1. The remainder of the ellipse is serially sectioned and submitted in cassettes 2-3. Jar 0. [facility] Dermatopathology Laboratory performed the technical component only. 8 11:25 AM [facility] DERMATOPATHOLOGY LABORATORY Embedded Images 8 11:25 AM [facility] DERMATOPATHOLOGY LABORATORY DISCLAIMER An external and internal positive and negative controls are appropriate for the histochemical, immunohistochemical and immunofluorescence stain(s) in this case (if any), except where stated explicitly. The performance characteristics of the stain(s) cited in this report were developed and its performance characteristic determined by the Dermatopathology Laboratory at [facility]. These tests need not be, and therefore are not, approved by the [place] Food and Drug Administration. The tests are used for clinical purposes. 8 11:25 AM [facility] DERMATOPATHOLOGY LABORATORY Pathology/Cytolog y TISSUE SPECIMEN FROM SKIN / Unknown 06/10/2018 06/11/2018 6:53 AM CHILDCARE ATTENDANT Felicia Huffman MD LAB - PATHOLOGY/CYT OLOGY ORDERABLES DERMATOPATHOLOGY LABORATORY [facility] - Department of Dermatology [address] [place] [address] 5th Floor Lab [address] [phone] documented in this encounter Visit Diagnoses Not on filedocumented in this encounter Care Teams Farm Product Purchaser Relationship Specialty Start Date End Date Joshua Murphy MD [address] [place] [address] PCP - General 10/10/17 documented as of this encounter
--- OUTSIDE RECORDS SUMMARY | 2024-09-13 14:33 | XMS_ITS | Encounter Summary ---
Author Organization [facility] Address [facility] [place] [address] Care Team Providers Care Diesel Machinist Name Role Phone Yasmany Murphy Primary Care Provider [phone] Joshua Murphy MD Unavailable [phone]- [phone] Joshua Murphy MD Primary Care Provide r Joshua Murphy MD Unavailable [phone]- [phone] Encounter Details Date Type Department Care Team (Late st Contact Info) Description 06/26/[address] [facility] Clin[facility] Conversion , Generic ConversionMD Social History [...] Description 09/28/2024 1:00 PM CDT Office Visit [facility] [address] [place] [phone] [place] [address] [place] [address] documented as of this encounter Visit Diagnoses Not on filedocumented in this encounter Care Teams Diesel Machinist Relationship Specialty Start Date End Date Yasmany Murphy FNP [address] [place] [address] PCP - General NURSE PRACTITIONER 09/03/18 02/08/19 [place] [address] [place] [address] PCP - Med Group - [facility] Attributed Provider 08/28/18 08/29/19 [place] [address] [place] [address] PCP - General INTERNAL MEDICINE 02/09/19 [place] [address] [place] [address] PCP - Med Group - [facility] Attributed Provider 10/29/19 06/30/20 documented as of this encounter
--- OUTSIDE RECORDS SUMMARY | 2024-09-13 14:33 | XMS_ITS | Clinical Summary ---
Author Organization [facility] Address [address] [place] [address] Care Team Providers Care Balancer Scale Name Role Phone Joshua Murphy MD Primary Care Provide r Allergies Active Allergy Reactions Criticality Noted Date Comments Escitalopram Other (see comment) 09/20/2016 feels cold Sulfa Antibiotics Hives,Rash Low 02/22/2016 Medications PREMARIN 0.625 MG/GM vaginal cream LEILANI 1 GRAM VAGINALLY 2 TIMES A WK 3 018 Active Calcium Citrate-Vitamin D (CALCIUM + D OR) Take 1 tablet by mouth 2 (two) times daily. 016 Active clobetasol 0.05 % cream Apply topically see administration instructions. 2x weekly PM 017 Active acetaminophen 500 MG tablet Take 1 [...] 1 day. Active rizatriptan (MAXALT) 10 MG tabletIndications :Other migraine with status migrainosus, not intractable TAKE 1 TABLET BY MOUTH NEEDED FOR MIGRAINE; MAY REPEAT IN 2 HOURS IF NEEDED; MAX 2 TABLETS IN 24 HOURS 10 tablet 5 024 Active diphenoxylate-atr opine (LOMOTIL) 2.5-0.025 MG tabletIndications :Chronic diarrhea Take 1 tablet by mouth 2 (two) times a day. 60 tablet 5 024 Active levothyroxine (SYNTHROID) 50 MCG tabletIndications :Acquired hypothyroidism TAKE 1 TABLET(50 MCG) BY MOUTH 5 TIMES A WEEK 20 tablet 11 024 Active levothyroxine (SYNTHROID) 75 MCG tabletIndications :Acquired hypothyroidism Take 1 tablet (75 mcg total) by mouth every morning. 30 tablet 11 024 Active atorvastatin (LIPITOR) 20 MG tabletIndications :Mixed hyperlipidemia TAKE 1 TABLET BY MOUTH EVERY DAY 90 tablet 3 025 Active atorvastatin (LIPITOR) 20 MG tabletIndications :Mixed hyperlipidemia take 1 tablet by mouth every day 90 tablet 2 024 2024 Discontinued Active Problems Problem Noted Date Diagnosed Date [...] other specified disorders of function of stomach Acquired hypothyroidism 07/11/2012 Overview (09/03/2018): Unspecified hypothyroidism Encounters Date Type Department Care Team Description 09/02/2024 Orders Only [facility] [address] [place] [phone] Joshua Murphy MD 09/01/2024 Telephone [facility] [address] [place] [address] Joshua Murphy MD Lab Order 08/30/2024 Scan HEALTH INFO SRVCS Scanned, Doc Med Group Image (SCAN) 08/02/2024 Scan HEALTH INFO SRVCS Scanned, Doc Med Group Image (SCAN) 07/19/2024 Scan MG HEALTH INFO SRVCS Scanned, Doc Med Group Image (SCAN); Procedure (SCAN) 07/10/2024 Scan MG HEALTH INFO SRVCS Scanned, Doc Med Group CT (SCAN); Image (SCAN) from Last 3 Months Immunizations Name Administration Dates Next Due Arexvy Respiratory Syncytial Virus (RSV, adjuvanted) 0.5 mL, PF 03/18/2023 Fluzone High Dose - >Age 65 (Prefilled Syringe) 03/15/2023,04/07/2022,03/04/2020,2018,03/12/2018 Influenza (Generic) 03/24/2016,03/22/2012 Influenza Adult (Generic) 03/03/2021,,03/23/2016,2014,03/17/2014,03/17/2013 MODERNA COVID-19 (12+), MRNA , LNP-S, PF, 50 MCG/0.5 ML (SPIKEVAX) 03/18/2023 PFIZER COVID-19 (THOMPSON CAP), MRNA, LNP-S, PF, 30 MCG/0.3 ML MALRO-SUCROSE, IM 10/13/2021 PFIZER COVID-19 (ORIGINAL FORMULATION, PURPLE CAP) mRNA, LNP-S, PF, 30 MCG/0.3 ML DOSE 03/27/2021,09/03/2020,08/10/2020 PFIZER COVID-19 BIVALENT (12 +) mRNA, LNP-S, PF, 30 MCG/0.3 ML DOSE 04/07/2022 Pneumococcal (Pneumovax 23) 05/30/2010 Pneumococcal (Prevnar 13) 04/16/2018 Tdap (Generic) 05/30/2010 Zoster (Zostavax) 57173 Unt/0.65Ml 06/30/2005 Family History Medical History Relation [...] 83 02/03/2024 2:57 PM CDT Temperature 36.7 C (98.1 F) 02/03/2024 2:57 PM CDT Respiratory Rate 18 02/03/2024 2:57 PM CDT Oxygen Saturation 95% 02/03/2024 2:57 PM CDT Inhaled Oxygen Concentration - - Weight 57.8 kg (127 lb 6.4 oz) 02/03/2024 2:57 P M CDT Height 157.5 cm (5' 2 ) 05/23/2020 10:45 AM CLIENT DEVELOPMENT MANAGER Body Mass Index 23.3 05/23/2020 10:45 AM CLIENT DEVELOPMENT MANAGER Plan of Treatment Upcoming Encounters Date Type Department Care Team (Late st Contact Info) Description 09/28/2024 1:00 PM CDT Office Visit [facility] [address] [place] [id number] [place] [address] [place] [address] Health Maintenance Due Date Last Done Comments Zoster Vaccines (2 of 3) 08/25/2005 06/30/2005 Annual Medicare Wellness Visit 2007 DTaP, Tdap and Td Vaccines (2 - Td or Tdap) 05/30/2020 05/30/2010 COVID-19 Vaccine ( season) 2024 03/18/2023, 04/07/2022, 10/13/2021, Additional history exists Influenza Adult (#1) 2024 03/15/2023, 04/07/2022, 03/03/2021, Additional history exists PHQ-2 (Physician [place]) 06/30/2024 02/03/2024 Pneumococcal Vaccine: 65+ Years Completed 04/16/2018, 05/30/2010 RSV Immunization or 60+ Years Completed 03/18/2023 Dexa Scan (General) Completed 04/29/2024, 03/30/2021, 02/09/2019 Meningococcal B Vaccine Aged Out No l onger eligible based on patient's age to complete this topic Meningococcal Vaccine Aged Out No crystal bandar eligible based on patient's age to complete this topic RSV Immunizations Under 20 Months Aged Out No longer eligible based on patient's age to complete this topic Procedures Procedure Name Priority Date/Time Associated Diagnosis Comments IMAGE GENERIC 08/30/2024 IMAGE GENERIC 08/02/2024 IMAGE GENERIC 07/19/2024 PROCEDURE GENERIC (SCAN ORDER) 07/19/2024 CT GENERIC 07/10/2024 IMAGE GENERIC 07/10/2024 IMAGE GENERIC 07/10/2024 BONE DENSITY/DEXA Routine 04/29/2024 11: 14 AM CDT Osteoporosis from Last 3 Months or Most Recently Relevant to Health Maintenance Results * IMAGE GENERIC (08/30/2024) Only the most recent of5 resultswithin the time period is included. Anatomical Region Laterality Modality Other 08/30/2024 [facility] Scanned SCANNING Final Resu lt * PROCEDURE GENERIC (SCAN ORDER) (07/19/2024) 07/19/2024 [facility] Scanned SCANNING Final Resu lt * CT GENERIC (07/10/2024) Anatomical Region Laterality Modality Other 07/10/2024 [facility] Scanned SCANNING Final Resu lt * BONE DENSITY/DEXA (04/29/2024 11:14 AM CDT) Anatomical Region Laterality Modality Bone Bone Density 04/30/2024 8:22 AM CDT Impressions 04/30/2024 8:24 AM CDT IMPRESSION: WHO Classification: Osteopenia of the bilateral hips. Improved bone mineral density of the left hip compared to 2019. FRAX Score 10-year fracture risk: Major Osteoporotic Fracture: 16% Hip Fracture: 5.5% Ordered By: DELANEY MARSHALL Interpreted By: Noe Gracia MD, 04/30/2024 8:22 AM Narrative 04/30/2024 8:24 AM CDT [facility] [address] [place] [address] Examination: Bone Density Axial Exam Date/Time: 04/29/2024 11:02 AM Reason For Exam: Postmenopausal screening. Comparison DEXA: 02/09/2019 Findings: DEXA bone densitometry The bone mineral density (BMD) was determined by dual-energy x-ray absorptiometry, the results are as follows: AP Lumbar Spine L1 through L4 BMD Patient (GM/SQCM): 0.821 T-Score (Standard deviations from young adult peak bone density): -2.1 (Previous T score: -2.5) Left femoral neck: BMD Patient (GM/SQCM): 0.639 T-Score (Standard deviations from young adult peak bone density): -1.9 (Previous T score: -2.8) Total left femur: BMD Patient (GM/SQCM): 0.735 T-Score (Standard deviations from young adult peak bone density): -1.7 (Previous T score: -2.2) Right femoral neck: BMD Patient (GM/SQCM): 0.589 T-Score (Standard deviations from young adult peak bone density): -2.3 (Previous T score: not available) Total [...] Procedure Note Noe Gracia MD - 04/30/2024 [facility] [address] [place] [address] Examination: Bone Density Axial Exam Date/Time: 04/29/2024 [...] DEXA Final Result from Last 3 Months or Most Recently Relevant to Health [place] [address] [employer] Care Teams Balancer Scale Relationship Specialty [place] [address] [place] [address] PCP - General INTERNAL MEDICINE 02/09/19
--- OUTSIDE RECORDS SUMMARY | 2024-09-13 14:33 | XMS_ITS | Referral Summary ---
Author Organization [facility] Address [address] [facility] [place] [address] Care Team Providers Care Air Brake Operator Name Role Phone Joshua Murphy MD Primary Care Provide r Source Comments [facility],non-[facility] Affiliates and Associated Physician Practices is amultiple site organization consisting of ambulatory clinics and hospital sitesin [place], [place], [place] and [place]. This disclosure is being madepursuant to the Care Everywhere program and may not contain all information available regarding this patient. Last updated 18.[facility] Android App Review Source Social History Tobacco Use Types Packs/Day Years [...] of Treatment Not on file Care Teams Air Brake Operator Relationship Specialty Start Date End Date Joshua Murphy MD [address] [place] [address] PCP - General 10/10/17
[2024-09-13 14:42] LABS: LDL Cholesterol Direct 52 mg/dL
[2024-09-13 15:56] LABS: Add Urine Microscopic? YES; Appearance Urine Clear (Clear); Bacteria Urine 1+ /hpf; Bilirubin Urine Negative (Negative); Blood Urine Negative (Negative); Color Urine Yellow (Yellow); Glucose Urine UA Negative (Negative); Ketones Urine Negative (Negative); Leukocyte Esterase Ur 1+ LEU/UL (Negative); Nitrate Urine Negative (Negative); Non Pathogenic Casts 0-2; Protein Urine Negative (Negative); RBC Urine 0-2 /hpf (0-2); Specific Grav Ur 1.022 (1.001-1.035); Squamous Epithelial Cell Urine Moderate /hpf (Few); Urobilinogen Urine 0.2 mg/dL (<2.0); pH Urine 5.5 (5.0-9.0)
[2024-09-13 17:09] LABS: Vitamin D 25 Hydroxy 66.3 ng/mL
[2024-09-13 17:23] LABS: Thyroid Stimulating Hormone Reflex 0.363 uIU/mL (0.465-4.68)
[2024-09-13 18:28] LABS: Free T4 Free Thyroxine Reflex 1.34 ng/dL (0.78-2.19)
[2024-09-13 19:17] LABS: Total Triiodothyronine (T3) 1.71 NG/ML (0.97-1.69)
== END 2024-09-13 12:06 | disposition home or self-care (01) ==
PROVIDERS: PCP Pediatrics; Visit Provider Pediatrics
DX: E03.9 Hypothyroidism, unspecified (principal); E78.2 Mixed hyperlipidemia; E55.9 Vitamin D deficiency, unspecified
CPT/HCPCS: 36415; 80053; 80061; 81001; 82306; 84439; 84443; 84480; 85025

== ENCOUNTER 2024-12-11 15:14 | Emergency (ER) | payer MEDICARE, SELFPAY ==
[2024-12-11 15:32] VITALS: BP 143/68; PULSE 77; RESP 16; TEMP 36.6; O2SAT 100
--- NOTE | 2024-12-11 15:32 | ED_ITS ---
HPI - Wound/Laceration General Chief Complaint: Wound/Laceration Stated Complaint: R FOREARM WOUND Time Seen by Provider: 12/11/24 15:32 Source: patient Mode of arrival: ambulatory Limitations: no limitations History of Present Illness HPI narrative: 84-year-old female presents with skin tear to right forearm. Patient tripped yesterday and cut her arm on wooden steps. Patient's daughter clean wound at home. Bleeding controlled on arrival. Patient did not feel that anything could be done for her wound so she did not come until today, wants to have tetanus updated. All systems reviewed and negative except as noted above. Related Data Home Medications ?Medication ?Instructions ?Recorded ?Confirmed ?Last Taken ?Type atorvastatin 20 mg tablet 20 mg PO DAILY 11/30/20 12/11/24 07/18/24 History levothyroxine 50 mcg capsule 50 mcg PO DAILY 11/30/20 10/04/24 07/19/24 History clobetasol 0.05 % topical cream 1 applic topical 2XW 12/07/20 10/04/24 01/01/21 History 1 applic cranberry extract-vitamin C 1 cap PO DAILY 09/14/21 10/04/24 07/15/24 History multivit, calcium and 1 tablet PO DAILY 09/14/21 10/04/24 07/14/24 History minerals-vitamin D3-herbal#181 1,000 unit tablet conjugated estrogens 0.625 mg/gram 1 applic vaginal .twice weekly 07/15/24 10/04/24 Unknown History vaginal cream (Premarin) levothyroxine 50 mcg tablet mcg 12/11/24 Unknown History Allergies Allergy/AdvReac Type Severity Reaction Status Date / Time Sulfa (Sulfonamide Allergy Intermediate HIVES Verified 12/11/24 15:29 Antibiotics) SULFAMERAZINE (Generic Allergy Unknown HIVES Uncoded 12/11/24 15:29 Allergy) Review of Systems Review of Systems: CONSTITUTIONAL: Denies fever, chills, or sweats. EYES: Denies visual changes, redness, or discharge. ENT: Denies rhinorrhea, congestion, sore throat, or otalgia. CARDIOVASCULAR: Denies chest pain, palpitations, or edema. RESPIRATORY: Denies cough or dyspnea. GASTROINTESTINAL: Denies abdominal pain, nausea, vomiting, or diarrhea. GENITOURINARY: Denies dysuria or hematuria. SKIN: Denies rash or itching. Reports skin tear to right forearm MUSCULOSKELETAL: Denies back pain, joint pain, or myalgia. NEUROLOGIC: Denies headache, numbness, or weakness. PSYCHIATRIC: Denies anxiety or depression. All other systems reviewed are negative, except as documented in HPI. [facility] Past Medical History Medical History Osteopenia Urinary frequency Wears glasses Castano cyst Chondrocalcinosis Degenerative joint disease of knee Headache GERD (gastroesophageal reflux disease) Anxiety Surgical History Surgical History H/O Spinal surgery disc approx 1989 per patient questionnaire History of hysterectomy 1999 per patient questionnaire History of tonsillectomy 1947 per patient questionnaire Family History Family History Father Malignant neoplasm of prostate Grandparent Small cell lung cancer Other Cerebrovascular accident Rheumatoid arthritis Social History Social History Smoking status: Never smoker Alcohol intake: never Substance use: never Substance use type: does not use Do You Feel Safe in your Home?: Yes Lack of Transportation: No Lack of Food: Never True Current Housing: I Have Housing Concerned About Future Housing: No Difficulty Paying Gas/Electric Bills: No Difficulty Paying for Meds: No Currently Unemployed: No Education: Master's Degree or Higher Difficulty w/ Childcare or Family Care: No Living arrangements: alone Additional living arrangements comments: Son Occupation/Education: retired Additional occupation/education comments: German Gender identity (if verbalized by the patient): Female Sexual Orientation (if Verbalized by the Patient): Straight or Heterosexual Spiritual care concerns: No Agree to blood products: Yes Comments At time of signature, agree with nursing past medical, surgical, social and family history. There is no relevant family history pertinent to the presenting complaint. Exam Narrative: GENERAL: This is a well-nourished, well-developed patient, in no apparent distress. HEAD: normocephalic, atraumatic. EYES: PERRL. Sclera clear/white. Vision is grossly intact. EARS: External ears normal NOSE: External nose normal NECK: Neck supple, non-tender without lymphadenopathy, masses or thyromegaly. CARDIOVASCULAR: Regular rate and rhythm without murmurs, gallops, or rubs. RESPIRATORY: Clear to auscultation. Breath sounds equal bilaterally. No wheezes, rales, or rhonchi. SKIN: warm, Dry, with no suspicious lesions or rash, good texture and turgor. Skin tear to right forearm, ISTAP 2, 7 x 1.5 cm NEURO: awake, alert, and oriented to person, place and time. There were no obvious focal neurologic abnormalities. EXTREMITIES: No joint tenderness, effusion, or edema noted. Course Course Level of Care: Express Care Visit Vital Signs Vital signs: Vital Signs Temperature 36.6 C 12/11/24 15:32 Pulse Rate 77 12/11/24 15:32 Respiratory Rate 16 12/11/24 15:32 Blood Pressure 143/68 H 12/11/24 15:32 Pulse Oximetry 100 12/11/24 15:32 Oxygen Delivery Room Air 12/11/24 15:32 Temperature 36.6 C 12/11/24 15:32 Pulse Rate 77 12/11/24 15:32 Respiratory Rate 16 12/11/24 15:32 Blood Pressure 143/68 H 12/11/24 15:32 Pulse Oximetry 100 12/11/24 15:32 Oxygen Delivery Room Air 12/11/24 15:32 Reviewed Procedures Laceration Laceration 1: Date: 12/11/24 Time: 15:45 Site: upper extremity (For) Side (If applicable): right Size (cm): 7 Description: flap (Skin tear 7 x 1.5 cm) Depth: simple, single layer Local Anesthetic: none ====== Skin Level ====== Skin layer closed with: steri strips (8) ====== Subcutaneous Layer ====== ====== Muscle Layer ====== ====== Tendon Layer ====== MDM - Wound/Laceration MDM Narrative Medical decision making narrative: Skin tear to right forearm repaired with Steri-Strips. Tetanus updated today. Patient had mild erythema to wound edges. Will prescribe cephalexin as precaution. Patient agrees with plan of care. Differential Diagnosis Differential diagnosis: Likely laceration, abrasion and avulsion of skin Discharge Plan Discharge Clinical Impression: ISTAP type 2 skin tear of right forearm Patient Disposition: Home Condition: Stable Instructions: Antibiotic Form, Skin Tear (ED), Skin Adhesive Strips (ED) Additional Instructions: Take antibiotic as prescribed to prevent wound infection. Your tetanus was updated today. Keep Steri-Strips clean and dry. If they become wet, pat dry with towel. Let Steri-Strips fall off on their own. Do not pull or pick at straps. Follow-up with your primary care physician as needed. Patient Language: Grenadian Prescriptions: New cephalexin 500 mg capsule 500 mg PO Q12H 7 Days Qty: 14 0RF No Action levothyroxine 50 mcg tablet levothyroxine 50 mcg capsule 50 mcg PO DAILY atorvastatin 20 mg tablet 20 mg PO DAILY clobetasol 0.05 % cream 1 applic topical 2XW multivit,Ca,ybc-S3-plrbhk #181 1,000 unit tablet 1 tablet PO DAILY Patient Comments: on provided med list cranberry extract-vitamin C [Azo Cranberry Plus Vit C] 1 cap PO DAILY Patient Comments: on provided med list acetaminophen [Tylenol Extra Strength] 500 mg tablet 1,000 mg PO TID PRN (Reason: pain) Qty: 30 0RF Patient Comments: TOOK 1 TABLET TODAY ibuprofen 600 mg tablet 600 mg PO TID PRN (Reason: pain) Qty: 20 0RF Patient Comments: HOLD for 7 days pre op Premarin 0.625 mg/gram cream 1 applic vaginal .twice weekly Follow-up/Referrals: Jeffrey,Joshua Jack MD [Primary Care Provider] - Time of Disposition: 15:50
[2024-12-11] MEDS: TETANUS/DIPHTHERIA TOXOIDS ADSORB 0.5 ML SYRINGE (*BKC) IM (16:00)
== END 2024-12-11 16:10 | disposition home or self-care (01) ==
PROVIDERS: Emergency Provider Nurse Practitioner Family; PCP Pediatrics
DX: S51.811A Laceration without foreign body of right forearm, initial encounter (principal); W01.198A Fall on same level from slipping, tripping and stumbling with subsequent striking against other object, initial encounter; Z23 Encounter for immunization; M85.80 Other specified disorders of bone density and structure, unspecified site; K21.9 Gastro-esophageal reflux disease without esophagitis
CPT/HCPCS: 90471; 90714; 99213; G0463

== ENCOUNTER 2025-03-31 09:01 | Outpatient (CLI) | payer MEDICARE, SELFPAY ==
--- OUTSIDE RECORDS SUMMARY | 2025-03-31 09:25 | XMS_ITS | Clinical Summary ---
Author Organization [facility] Address [address] [place] [address] Care Team Providers Care Luncheonette Operator Name Role Phone Joshua Murphy MD Primary Care Provide r Source Comments [facility] Affiliates and Associated Physician Practices is amultiple site organization consisting of ambulatory clinics and hospital sitesin [place], [place], [place] and [place]. This disclosure is being madepursuant to the Care Everywhere program and may not contain all information available regarding this patient. Last updated 18.[facility] [employer] Social History Tobacco Use Types Packs/Day Years Used Date Smoking Tobacco: Never Assessed Comments Unknown Sex and Gender Information Value Date Recorded Sex Assigned at Not on file Legal Sex Female 8:[address] COLLECTIONS OFFICER Gender Identity Not on file Sexual [...] 2:09 PM CDT Height 157.5 cm (5' 2) 12/08/2013 2:09 PM CDT Body Mass Index 25.79 12/08/2013 2:09 PM CDT Plan of Treatment Health Maintenance Due Date Last Done Comments BONE DENSITY TESTING 1942 DTAP/TDAP/TD VACCINES (1 - Tdap) 1961 PNEUMOCOCCAL VACCINE 50+ (1 of 1 - PCV) 1992 ZOSTER VACCINE (1 of 2) 1992 Respiratory Syncytial Virus (RSV) Vaccine Pt: or over 60 yrs (1 - 1-dose 75+ series) 2017 DEPRESSION SCREENING 06/30/2024 COVID-19 VACCINE (2023-2 5 season) 2025 INFLUENZA VACCINE (#1) 2025 HEPATITIS B VACCINE Aged Out No longe [...] on patient's age to complete this topic [place] [address] MANAGED MEDICARE [place] [id number] Care Teams Luncheonette Operator Relationship Specialty Start Date End Date Joshua Murphy MD [address] [place] [address] PCP - General 10/10/17
--- OUTSIDE RECORDS SUMMARY | 2025-03-31 09:25 | XMS_ITS | Encounter Summary ---
Author Organization [facility] Address [address] [facility] [place] [address] Care Team Providers Care Sales And Marketing Vice President Name Role Phone Joshua Murphy MD Primary Care Provide r Encounter Details Date Type Department Care Team (Late st Contact Info) Description 04/13/2018 Lab Requisition [facility] [address] [facility] [place] [id number] Felicia Huffman MD [address] [facility] [address] [place] [address] Social History Tobacco Use Types Packs/Day Years Used Date Smoking Tobacco: Never Assessed Comments Unknown Sex and Gender Information Value Date Recorded Sex Assigned at Not on file Legal Sex Female 8:02 PM HEALTH TECH Gender Identity Not on file Sexual Orientation Not on file documented as of this encounter Plan of Treatment Not on file documented as of this encounter Procedures Procedure Name Priority Date/Time Associated Diagnosis Comments DERMATOPATH TECHNICAL REPORT Routine 04/10/2018 12:00 AM CDT documented in this encounter Results * DERMATOPATH TECHNICAL REPORT (04/10/2018 12:00 AM CDT) Case Report Dermatopathology Report Case: [id number] Authorizing Provider: Felicia Huffman MD Collected: 04/10/2018 12:00 AM Pathologist: Sahra Duarte MD Received: 04/13/2018 06:46 AM Specimen: Skin, right mid forearm 8 10:59 AM CDT DERMATOPATHOLOGY LABORATORY Clinical History R/O BCC, irritated, non-healing. Check margins. 8 10:59 AM CDT DERMATOPATHOLOGY LABORATORY Gross Description Specimen A: Received is one formalin filled container labeled with the patient's name and designated right mid forearm. The specimen consists of a shave measuring [id number]. The margin is inked green. Jar 0. [facility] Dermatopathology Laboratory performed the technical [...] characteristic determined by the Dermatopathology Laboratory at [facility]. These tests need not be, and therefore are not, approved by the [place] Food and Drug Administration. The tests are used for clinical purposes. 10:59 AM T DERMATOPATHOLOGY LABORATORY at 1058 CDT Pathology/Cytolog y TISSUE SPECIMEN FROM SKIN / Unknown 04/10/2018 04/13/2018 6:46 AM CDT Felicia Huffman MD LAB - PATHOLOGY/CYTOLOGY OR DERABLES Final Result DERMATOPATHOLOGY LABORATORY [facility] - Department of Dermatology [address] [place] [address], 5th Floor Lab [address] [phone] documented in this encounter Visit Diagnoses Not on filedocumented in this encounter Care Teams Sales And Marketing Vice President Relationship Specialty Start Date End Date Joshua Murphy MD [address] [place] [address] PCP - General 10/10/17 documented as of this encounter
--- OUTSIDE RECORDS SUMMARY | 2025-03-31 09:25 | XMS_ITS | Patient Health Record ---
Author Organization [facility] [employer] [facility] Address [address] [place] [address] Support Name Relationship Address Phone ANGELA RO Emergency Contact Unknown Unavailab le JOHN RO Guarantor Unknown [phone] Reason For Referral No Information Medications Medication SIG (Take, Route, Frequency, Duration) Notes Start Date End Date Status Levothyroxine Sodium 75 MCG Tablet Oral 04/22/2023 Active Amoxicillin 500 MG Tablet Oral 04/22/2023 Active Premarin 0.625 MG/GM Cream Vaginal 04/22/2023 Active Rizatriptan Benzoate 10 MG Tablet Oral 04/22/2023 Active Prolia 60 MG/ML Solution Subcutaneous *Pick strength-form from [employer] for eRX* 04/22/2023 Active Levothyroxine Sodium 50 MCG Tablet Oral 04/22/2023 Active Clobetasol Propionate 0.05% Cream External 04/22/2023 Active Atorvastatin Calcium 20 MG Tablet Oral 04/22/2023 Active Social History Social History Additional Details Category Social Info Options Details Migrated Social History Migrated Social History Alcohol Intake: None 04/22/2023,Tobacco Years: Never smoker 04/22/2023 Plan Of Treatment No Information Insurance Providers Payer Name Payer Address Payer Phone Subscriber Number Group Number Insured Name Patient Relationship to Insured Coverage Start Date Coverage End Date [employer] [address] [facility] [place] [place] [phone] [id number] 1 JOHN RO Self - patient is the insured Medical (General) History Surgical History Surgery Date(Month/Year) Tonsilectomy/adenoids 06/30/1949 Cataract surgery (20331) 06/30/2020 Hysterectomy (39237) 12/28/1989
--- OUTSIDE RECORDS SUMMARY | 2025-03-31 09:25 | XMS_ITS | Encounter Summary ---
Author Organization [facility] Address [address] [place] [address] Care Team Providers Care Paper Wrapping Machine Operator Name Role Phone Joshua Murphy MD Primary Care Provide r Encounter Details Date Type Department Care Team (Late st Contact Info) Description 06/11/2018 Lab Requisition [facility] [address] [place] [id number] Felicia Huffman MD [address] [facility] [address] [place] [address] Social History Tobacco Use Types Packs/Day Years Used Date Smoking Tobacco: Never Assessed Comments Unknown Sex and Gender Information Value Date Recorded Sex Assigned at Not on file Legal Sex Female 8:02 PM COMMUNITY HEALTH COORDINATOR Gender Identity Not on file Sexual Orientation Not on file documented as of this encounter Plan of Treatment Not on file documented as of this encounter Procedures Procedure Name Priority Date/Time Associated Diagnosis Comments DERMATOPATH TECHNICAL REPORT Routine 06/10/2018 12:00 AM COMMUNITY HEALTH COORDINATOR documented in this encounter Results * DERMATOPATH TECHNICAL REPORT (06/10/2018 12:00 AM COMMUNITY HEALTH COORDINATOR) Case Report Dermatopathology Report Case: [id number] Authorizing Provider: Felicia Huffman MD Collected: 06/10/2018 12:00 AM Pathologist: Braden Balbuena MD Received: 06/11/2018 06:53 AM Specimen: Skin, right mid FA 8 11:25 AM COMMUNITY HEALTH COORDINATOR DERMATOPATHOLOGY LABORATORY Clinical History R/O BCC, biopsy proven. Check margins. 8 11:25 AM COMMUNITY HEALTH COORDINATOR DERMATOPATHOLOGY LABORATORY Gross Description Specimen A: Received is one formalin filled container labeled with the patient's name and designated right mid FA. The specimen consists of a non-oriented ellipse of skin measuring [id number]. The epidermal surface consists of a centrally located 5x5mm previous biopsy site. The margin is inked green. The 12 o'clock and 6 o'clock tips are submitted in cassette 1. The remainder of the ellipse is serially sectioned and submitted in cassettes 2-3. Jar 0. [facility] Dermatopathology Laboratory performed the technical component only. 8 11:25 AM [facility] DERMATOPATHOLOGY LABORATORY Embedded Images 11:25 AM [facility] DERMATOPATHOLOGY LABORATORY DISCLAIMER An external and internal positive and negative controls are appropriate for the histochemical, immunohistochemical and immunofluorescence stain(s) in this case (if any), except where stated explicitly. The performance characteristics of the stain(s) cited in this report were developed and its performance characteristic determined by the Dermatopathology Laboratory at [facility]. These tests need not be, and therefore are not, approved by the [place] Food and Drug Administration. The tests are used for clinical purposes. 8 11:25 AM [facility] DERMATOPATHOLOGY LABORATORY at [address] [facility] Pathology/Cytolog y TISSUE SPECIMEN FROM SKIN / Unknown 06/10/2018 06/11/2018 6:53 AM COMMUNITY HEALTH COORDINATOR Felicia Huffman MD LAB - PATHOLOGY/CYTOLOGY OR DERABLES Final Result DERMATOPATHOLOGY LABORATORY [facility] - Department of Dermatology [address], [address] Lab [address] [place], [place] [id number] [place] [address] documented in this encounter Visit Diagnoses Not on filedocumented in this encounter Care Teams Paper Wrapping Machine Operator Relationship Specialty Start Date End Date Joshua Murphy MD [address] [place] [address] PCP - General 10/10/17 documented as of this encounter
--- OUTSIDE RECORDS SUMMARY | 2025-03-31 09:25 | XMS_ITS | Clinical Summary ---
Author Organization [facility] Address [address] [place] [address] Care Team Providers Care Supervising Film Or Videotape Editor Name Role Phone Joshua Murphy MD Primary [...] on file Legal Sex Female 12:44 AM MASTER MACHINIST Gender Identity Not on file Sexual Orientation Not on file Obstetrics History Last Filed Vital Signs Vital Sign Reading Time Taken Comments Blood Pressure 108/66 05/04/2024 10:25 AM MASTER MACHINIST Pulse 76 05/04/2024 10:25 AM MASTER MACHINIST Temperature 36.6 C (97.8 F) 05/04/2024 10:25 AM MASTER MACHINIST Respiratory Rate 18 05/04/2024 10:25 AM MASTER MACHINIST Oxygen Saturation 97% 05/04/2024 10:25 AM MASTER MACHINIST Inhaled Oxygen Concentration - - Weight 57 kg (125 lb 11.2 oz) 05/04/2024 10:25 A M MASTER MACHINIST Height 154.9 cm (5' 1) 05/04/2024 10:25 AM MASTER MACHINIST Body Mass Index 23.75 05/04/2024 10:25 AM MASTER MACHINIST Plan of Treatment Health Maintenance Due Date Last Done Comments Depression Screening 1942 Fall Risk Assessment 1940 Hepatitis B Screening 1960 Zoster Vaccine (2 of 3) 08/25/2005 06/30/2005 Well Visit 65+ 2007 DTaP/Tdap/Td Vaccine (2 - Td or Tdap) 05/30/2020 05/30/2010 Covid-19 Vaccine (8 - Pfizer risk 2023- season) 2025 04/01/2024, 03/18/2023, 04/07/2022, Additional history exists Influenza Vaccine (#1) 2025 , 03/15/2023, 04/07/2022, Additional history exists Osteoporosis Screening-Bone Density Scan 04/29/2026 04/29/2024 Pneumococcal vaccine 65+ Completed 04/16/2018, 06/2009 Insurance [facility] MEDICARE ADVANTAGE [employer] MEDICARE INCLUDES THE [facility] MED[facility] Address: [address] [place] [address] Care Teams Supervising Film Or Videotape Editor Relationship Specialty Start Date End Date Joshua Murphy MD PCP - General Internal Medicine 03/03/19
--- OUTSIDE RECORDS SUMMARY | 2025-03-31 09:25 | XMS_ITS | Clinical Summary ---
Author Organization [facility] Address [address] [address] Phone Care Team Providers Care Millstone Cleaner Name Role Phone Unavailable Primary Care Provider Unavailabl e Allergies Active Allergy Reactions Criticality Noted Date Comments Sulfamethoxazole-Trimethoprim Unknown 2020 Medications denosumab (Prolia) 60 mg/mL Syringe Inject 1 mL (60 mg) by subcutaneous injection every 6 months 1 mL 05/08/2022 2:02 PM COMPUTER SCIENCE PROFESSOR 2 Active denosumab (Prolia) 60 mg/mL Syringe [...] 1-dose 75+ series) 2017 INFLUENZA VACCINE (#1) 2025 Insurance RX [employer] RX Member Subscriber Plan / Payer (Ef fective for All Dates) Name:Edwige Whiting Relation to Subscriber:Self Name:Edwige Whiting Payer ID:Not on file Group ID:[id number] Type:RX Medicare Part D Address: [facility] FACULTY NEUROPSYCHOLOGIST, [facility] Commercial RX [employer] Medicare Part D
[2025-03-31 10:50] LABS: Thyroid Stimulating Hormone Reflex 2.760 uIU/mL (0.465-4.68)
== END 2025-03-31 09:02 | disposition home or self-care (01) ==
LOC: ANHLAB 09:03
PROVIDERS: PCP Pediatrics; Visit Provider Pediatrics
DX: E03.9 Hypothyroidism, unspecified (principal)
CPT/HCPCS: 36415; 84443